=== PATIENT | male | born 1940 | race Caucasian/White ===

== ENCOUNTER 2021-09-30 18:45 | Inpatient (IN) | payer MEDICARE ==
[~2021-09-30] VITALS: Ht 182.9 cm; Wt 124.2 kg
--- NOTE | 2021-09-30 19:28 | PHYS DOC ---
Past Medical History Past Surgical History: Other General Adult EDM: Chief Complaint: ABDOMINAL PAIN HPI: HPI: Patient is a 81 year old male who presents with here by EMS from [facility] with mid sternal pain that goes down into his umbilical area that he feels like it is a squeezing type pain. States been going on since this afternoon. Also the patient does not usually wear oxygen but upon EMS arrival he was only 85 to 87% on room air. States he was just treated for a urinary infection and is done with the antibiotic. He denies nausea, vomiting, chest pain, diarrhea, blood in his stool, urinary symptoms, dizziness, headache, focal weakness, numbness or tingling, vision change, fever, chills, body aches. Rates his pain a 7 out of 10. History of high blood pressure diabetes, GERD, high cholesterol, large prostate, seizure, left below the knee amputation. Review of Systems: Review of Systems: Constitutional: Denies fever or chills. [] Eyes: Denies change in visual acuity. [] HENT: Denies nasal congestion or sore throat. [] Respiratory: Denies cough or +shortness of breath. [] Cardiovascular: Denies chest pain or edema. [] GI: +abdominal pain, denies nausea, vomiting, bloody stools or diarrhea. [] : Denies dysuria. [] Musculoskeletal: Denies back pain or joint pain. [] Integument: Denies rash. [] Neurologic: Denies headache, focal weakness or sensory changes. [] Endocrine: Denies polyuria or polydipsia. [] Lymphatic: Denies swollen glands. [] Psychiatric: Denies depression or anxiety. [] Heart Score: C/O Chest Pain: No HEART Score for Chest Pain: HEART Score for Chest Pain Response (Comments) Value History Slighlty/Non-Suspicious 0 ECG Normal 0 Age > 65 2 Risk Factors >3 Risk Factors or Hx CAD 2 Troponin < Normal Limit 0 Total 4 Risk Factors: Risk Factors: DM, Current or recent (<one month) smoker, HTN, HLP, family history of CAD, obesity. Risk Scores: Score 0 - 3: 2.5% MACE over next 6 weeks - Discharge Home Score 4 - 6: 20.3% MACE over next 6 weeks - Admit for Clinical Observation Score 7 - 10: 72.7% MACE over next 6 weeks - Early Invasive Strategies Physical Exam: PE: Constitutional: Well developed, well nourished, no acute distress, non-toxic appearance. [] HENT: Normocephalic, atraumatic, bilateral external ears normal, oropharynx moist, no oral exudates, nose normal. [] Eyes: PERRLA, EOMI, conjunctiva normal, no discharge. [] Neck: Normal range of motion, no tenderness, supple, no stridor. [] Cardiovascular:Heart rate regular rhythm, no murmur [] Lungs & Thorax: Bilateral breath sounds clear to auscultation [] Abdomen: Bowel sounds normal, soft, no tenderness, no masses, no pulsatile masses. [] Skin: Warm, dry, no erythema, no rash. [] Back: No tenderness, no CVA tenderness. [] Extremities: No tenderness, no cyanosis, no clubbing, ROM intact, no edema. [] Neurologic: Alert and oriented X 3, normal motor function, normal sensory function, no focal deficits noted. [] Psychologic: Affect normal, judgement normal, mood normal. [] Current Patient Data: Vital Signs: Vital Signs Date Time Temp Pulse Resp B/P (MAP) Pulse Ox O2 Delivery O2 Flow Rate FiO2 09/30/21 19:12 97.7 94 22 189/89 (122) 94 Nasal Cannula 2.0 97.7 EKG: EK and read by Dr. Tee as a sinus rhythm with no STEMI. Radiology/Procedures: Radiology/Procedures: [] Impression: [facility] [address] [place], [place] [id number] IMAGING REPORT Signed PATIENT: HATTIE ESPINOZA ACCOUNT: [id number] : 1940 LOCATION: ER AGE: 81 SEX: M EXAM STATUS: PRE ER ORD. PHYSICIAN: BONIFACIO MCKENZIE APRN REASON: hypoxia PROCEDURE: PORTABLE CHEST 1V Single view chest dated 09/30/2021 7:47 PM: COMPARISON: None Clinical Indication: Hypoxia. Findings: Single upright portable exam of the chest was performed. Heart and mediastinal contours within normal limits. Lungs are somewhat hyperinflated but otherwise clear. No consolidation or pleural effusion. No pneumothorax. There are a few prominent linear markings at both lung bases, likely scar or atelectasis. IMPRESSION: No acute radiographic abnormality. Electronically signed by: Sin Almonte MD (09/30/2021 7:48 PM) [facility] [place] and SIGNED BY: SIN ALMONTE MD DATE: 09/30/21 [id number] [facility] [address] [place] [address] IMAGING REPORT Signed PATIENT: HATTIE ESPINOZA ACCOUNT: [id number] : 1940 LOCATION: ER AGE: 81 SEX: M EXAM STATUS: REG ER ORD. PHYSICIAN: BONIFACIO MCKENZIE APRN REASON: HYPOXIA, SOA, ABDOMINAL PAIN, C=2.0, GFR 32.4 DO BONIFACIO SAID DO WITHOUT PROCEDURE: CT CHEST ABDOMEN PELVIS WO Exam: CT of chest, abdomen and pelvis without contrast INDICATION: Hypoxia, short of air, abdominal pain TECHNIQUE: Sequential axial images through the chest, abdomen and pelvis obtained without IV contrast. Sagittal and coronal reformatted images were reconstructed from the axial data and reviewed. Exposure: One or more of the following in the visualized dose reduction techniques were utilized for this examination: 1. Automated exposure control 2. Adjustment of the MA and/or KV according to patient size 3. Use of iterative of reconstructive technique Comparisons: Chest x-ray same day FINDINGS: Visualized portions of the thyroid are unremarkable. No enlarged mediastinal lymph nodes are identified. Heart size is normal. No pericardial effusion. Moderate coronary artery calcifications. Thoracic aorta has normal course and caliber. Pulmonary artery is not enlarged. Airways are patent. Patchy groundglass opacity noted lungs bilaterally. No pneumothorax. No suspicious lung nodules. No pleural effusion or thickening. Evaluation of solid organs limited secondary to noncontrast technique. Liver, spleen, pancreas and adrenals are unremarkable. Gallbladder is unremarkable. No perinephric inflammation or hydronephrosis. No renal or ureteral calculi are identified. Bladder is decompressed not well evaluated. Prostate is not enlarged. Moderate amount stool noted in colon. Appendix is nonidentified. No free intra- abdominal air or fluid. No obstruction. Abdominal aorta has normal course and caliber. No enlarged intra-abdominal lymph nodes are identified. No suspicious osseous lesions or acute fractures. IMPRESSION: 1. Patchy groundglass opacity in lungs bilaterally favored to be infectious or inflammatory in etiology. 2. No acute process identified within the abdomen or pelvis. Electronically signed by: Ruslan Goldberg MD (09/30/2021 9:55 PM) [facility] DICTATED and SIGNED BY: RUSLAN GOLDBERG MD DATE: 09/30/21 [id number] Course & Med Decision Making: Course & Med Decision Making Pertinent Labs and Imaging studies reviewed. (See chart for details) COVID-19 CRITERIA: The patient was evaluated during the global COVID-19 pandemic, and that diagnosis was suspected/considered upon their initial presentation. Their evaluation, treatment and testing was consistent with current guidelines for patients who present with complaints or symptoms that may be related to COVID-19. See HPI. Alert and oriented x4. Patient is noticeably short of breath. Speaks in short sentences. Abdomen is soft and nontender. No pain elicited over chest with palpation. Lungs are clear in upper lobes and diminished in lower lobes. Skin pink warm and dry. EKG is a sinus rhythm no STEMI. He is afebrile. Patient is 94% on 2 L of oxygen. Patient is complaining that his blood glucose is low. We took our own fingerstick and it was 72. However patient has not had a CT abdomen pelvis I do not want to feed him or give him anything to drink. Patient got 250 mL of D5 which pharmacy states is the same as half amp of D50. We are currently out of D50 in the hospital. Patient has a white blood cell count of 18. He is requiring oxygen. I want to CT scan his chest but due to his kidney function I am unable to use IV contrast. Have ordered azithromycin in Rocephin. Have ordered fluid. I will order a VQ scan for in the morning. Chest x-ray showed no acute findings but with a CT chest, abdomen and pelvis without contrast showed some groundglass opacities. Patient has never been to this facility so I cannot look back to see his past lab results. I am unaware of any kind of acute renal failure. [] [place] Disclaimer: Fanny Disclaimer: This electronic medical record was generated, in whole or in part, using a voice recognition dictation system. COVID-19 Patient Risks: Age 65 or older: Yes Sign of co-morbidity: Yes Exp to person + for COVID: No Exp to PUI: No Travel from affected area: No Lower respiratory symptoms: Yes Fever: No Other: Yes (abd pain) PPE Use: Full PPE with N95 mask or PAPR: Yes Date and Time of Reassessment Date: Sep 30, 2021 Time: 22:12 Fluid Challenge Is the fluid challenge complet: No IBW Target Volume Used: Yes BMI > 30: Yes Vital Signs Vital Signs: Vital Signs Date Time Temp Pulse Resp B/P (MAP) Pulse Ox O2 Delivery O2 Flow Rate FiO2 09/30/21 20:32 15 93 Nasal Cannula 2.0 09/30/21 20:02 97 214/86 09/30/21 19:12 97.7 97.7 Temperature Source: Oral Respirations Respiratory Effort: Normal, Shortness of breath Respiratory Pattern: Normal Cardiovascular Pulse Rhythm: Regular Heart: Nml S1, S2, no murmurs Lung Sounds Breath Sounds: Diminished Capillary Refil Capillary Refill: Rt Hand < 3 seconds Peripheral Pulse Pulse Location: Radial Pulse Strength: Normal (2+) Pulse Assessment Method: Monitor Integumentary Skin: Warm Skin Moisture: Dry Skin Turgor: Normal Skin Color: warm Fingernail Color: WNL Departure Departure Impression: Primary Impression: Pneumonia Qualified Codes: J18.9 - Pneumonia, unspecified organism Additional Impressions: Hypoxia Person under investigation for COVID-19 SIRS (systemic inflammatory response syndrome) Acute kidney failure Qualified Codes: N17.9 - Acute kidney failure, unspecified Disposition: 09 ADMITTED INPATIENT Admitting Physician: BONNIE Condition: STABLE BONIFACIO MCKENZIE APRN Sep 30, 2021 19:28
[2021-09-30] MEDS ORDERED: FAMOTIDINE 20 MG/2 ML VIAL IVP ONE (19:30)
--- NOTE | 2021-09-30 19:50 | RAD ---
Single view chest dated 09/30/2021 7:47 PM: COMPARISON: None Clinical Indication: Hypoxia. Findings: Single upright portable exam of the chest was performed. Heart and mediastinal contours within normal limits. Lungs are somewhat hyperinflated but otherwise clear. No consolidation or pleural effusion. No pneumothorax. There are a few prominent linear markings at both lung bases, likely scar or atelect asis. IMPRESSION: No acute radiographic abnormality. Electronically signed by: Sin Almonte MD (09/30/2021 7:48 PM) [facility]
[2021-09-30] MEDS ORDERED: fentaNYL PF VIAL 100 MCG/2 ML VIAL IVP ONE (20:00)
[2021-09-30] MEDS ORDERED: CARVEDILOL 12.5 MG TABLET. PO ONE (20:00)
[2021-09-30 20:15] LABS: BILIRUBIN,URINE NEGATIVE (NEG); CLARITY,URINE CLEAR; COLOR,URINE YELLOW; NITRITE,URINE NEGATIVE (NEG); PROTEIN,URINE 100 mg/dL (NEG-TRACE); UROBILINOGEN,URINE 0.2 mg/dL (0.2 mg/dL)
[2021-09-30 20:16] LABS: BARBITURATES NEG (NEG); BENZODIAZEPINES NEG (NEG); CANNABINOIDS NEG (NEG); COCAINE NEG (NEG); GRANULAR CASTS,URINE OCCASIONAL /HPF; HYALINE CASTS, URINE FEW /HPF; METHADONE NEG (NEG); OPIATES NEG (NEG); PHENCYCLIDINE NEG (NEG)
[2021-09-30 20:17] LABS: AMPHETAMINE/METHAMPHETAMINE NEG (NEG)
[2021-09-30 20:18] LABS: BACTERIA,URINE 0 /HPF (0-FEW); WBC,URINE 20-40 /HPF (0-4)
[2021-09-30 20:20] LABS: INFLUENZA A PATIENT NEGATIVE (NEGATIVE); INFLUENZA B PATIENT NEGATIVE (NEGATIVE)
[2021-09-30 20:24] LABS: BASO # 0.1 x10^3/uL (0.0-0.2); BASO % 0 % (0-3); EOS # 0.1 x10^3/uL (0.0-0.7); EOS % 1 % (0-3); HEMATOCRIT 31.6 % (39.0-53.0); HEMOGLOBIN 10.5 g/dL (13.0-17.5); LYMPH % 6 % (24-48); MEAN CORPUSCULAR HEMOGLOBIN 35 pg (25-35); MEAN CORPUSCULAR HGB CONC 33 g/dL (31-37); MEAN CORPUSCULAR VOLUME 105 fL (79-100); MONO # 1.5 x10^3/uL (0.0-1.1); MONO % 8 % (0-9); NEUT # 15.3 x10^3/uL (1.8-7.7); NEUT % 85 % (31-73); PLATELET COUNT 415 x10^3/uL (140-400); RED BLOOD COUNT 3.01 x10^6/uL (4.30-5.70); RED CELL DISTRIBUTION WIDTH 14.3 % (11.5-14.5)
[2021-09-30 20:49] LABS: CALCIUM 8.4 mg/dL (8.5-10.1); GFR 32.4; POTASSIUM 4.5 mmol/L (3.5-5.1)
[2021-09-30 20:53] LABS: ALBUMIN 2.1 g/dL (3.4-5.0); ALBUMIN/GLOBULIN RATIO 0.3 (1.0-1.7); TOTAL BILIRUBIN 0.2 mg/dL (0.2-1.0); TOTAL PROTEIN 8.9 g/dL (6.4-8.2)
[2021-09-30] MEDS ORDERED: IV DEXTROSE 5% 250 ML IV ONE ×2 (20:55→21:30)
[2021-09-30] MEDS: IV DEXTROSE 5% 500 ML IV ONE ×2 (21:00→21:01)
[2021-09-30 21:11] LABS: % BANDS 2 % (0-9); % EOS 1 % (0-5); % LYMPHS 7 % (24-48); % MONOS 8 % (0-10); % SEGS 82 % (35-66)
[2021-09-30 21:12] LABS: PLT ESTIMATE INCREASED (ADEQUATE); POLYCHROMASIA SLIGHT
--- NOTE | 2021-09-30 21:57 | RAD ---
Exam: CT of chest, abdomen and pelvis without contrast INDICATION: Hypoxia, short of air, abdominal pain TECHNIQUE: Sequential axial images through the chest, abdomen and pelvis obtained without IV contrast . Sagittal and coronal reformatted images were reconstructed from the axial data and reviewed. Exposure: One or more of the following in the visualized dose reduction techniques were utilized for this examination: 1. Automated exposure control 2. Adjustment of the MA and/or KV according to patient size 3. Use of iterative of reconstructive technique Comparisons: Chest x-ray same day FINDINGS: Visualized portions of the thyroid are unremarkable. No enlarged mediastinal lymph nodes are identifi ed. Heart size is normal. No pericardial effusion. Moderate coronary artery calcifications. Thoracic aort a has normal course and caliber. Pulmonary artery is not enlarged. Airways are patent. Patchy groundglass opacity noted lungs bilaterally. No pneumothorax. No suspiciou s lung nodules. No pleural effusion or thickening. Evaluation of solid organs limited secondary to noncontrast technique. Liver, spleen, pancreas and adrenals are unremarkable. Gallbladder is unremarkable. No perinephric inflammation or hydronephrosis. No renal or ureteral calculi are identified. Bladder is decompressed not well evaluated. Prostate is not enlarged. Moderate amount stool noted in colon. Appendix is nonidentified. No free intra-abdominal air or fluid . No obstruction. Abdominal aorta has normal course and caliber. No enlarged intra-abdominal lymph nodes are identified. No suspicious osseous lesions or acute fractures. IMPRESSION: 1. Patchy groundglass opacity in lungs bilaterally favored to be infectious or inflammatory in etiol ogy. 2. No acute process identified within the abdomen or pelvis. Electronically signed by: Ruslan Quezada MD (09/30/2021 9:55 PM) [facility]
[2021-09-30] MEDS ORDERED: PIPERACILLIN/TAZOBACTAM 3.375 GM in IV NORMAL SALINE 50ML 50 ML IV ONE (22:00)
[2021-09-30] MEDS ORDERED: cefTRIAXone IV Push 1 GM VIAL. IVP ONE (22:30)
[2021-09-30] MEDS ORDERED: IV NORMAL SALINE 1000ML BAG 1,000 ML IV ONE (22:30)
[2021-09-30] MEDS ORDERED: IV NORMAL SALINE 500ML BAG 500 ML IV ONE (22:30)
[2021-09-30] MEDS ORDERED: AZITHROMYCIN 500 MG in IV NORMAL SALINE 250ML 250 ML IV ONE (22:30)
[2021-09-30 22:44] LABS: BASE EXCESS COOX -1 mmol/L (-3-3); HCO3 COOX 25 mmol/L (21-28); METHEMOGLOBIN 0.4 % (0.0-1.9); OXYHEMOGLOBIN 93.3 %; PCO2 COOX 43 mmHg (35-46); PO2 COOX 76 mmHg (65-108); SAT O2 COOX 94 % (92-99)
[2021-09-30 23:50] VITALS: BP 198/82
[2021-10-01] VITALS (8 sets, daily range): BP systolic 154–216; BP diastolic 62–87
[2021-10-01] MEDS ORDERED: ASPI-630 PO (00:53)
[2021-10-01] MEDS ORDERED: INSU100V6 SQ (01:04)
[2021-10-01] MEDS ORDERED: CHLO25TA10 PO (01:04)
[2021-10-01] MEDS ORDERED: TAMS0.4C97 PO (01:04)
[2021-10-01] MEDS ORDERED: CARV25TA2 PO (01:04)
[2021-10-01] MEDS ORDERED: PRAV80TA2 PO (01:04)
[2021-10-01] MEDS ORDERED: CINN500C2 PO (01:04)
[2021-10-01] MEDS ORDERED: OMEP20CA16 PO (01:04)
[2021-10-01] MEDS ORDERED: PHEN300C4 PO (01:04)
[2021-10-01] MEDS ORDERED: TELM80TA PO (01:07)
[2021-10-01] MEDS ORDERED: INSU100V37 SQ (01:07)
[2021-10-01] MEDS ORDERED: ACET500T68 PO (01:15)
[2021-10-01] MEDS ORDERED: ICOS1CAP PO (01:15)
[2021-10-01] MEDS ORDERED: CETI10TA16 PO (01:15)
[2021-10-01] MEDS ORDERED: SILD20TA4 PO (01:15)
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
[2021-10-01 08:50] LABS: BASO % 0 % (0-3); EOS # 0.1 x10^3/uL (0.0-0.7); EOS % 1 % (0-3); HEMATOCRIT 28.5 % (39.0-53.0); HEMOGLOBIN 9.2 g/dL (13.0-17.5); LYMPH # 1.2 x10^3/uL (1.0-4.8); LYMPH % 11 % (24-48); MEAN CORPUSCULAR HEMOGLOBIN 34 pg (25-35); MEAN CORPUSCULAR HGB CONC 32 g/dL (31-37); MEAN CORPUSCULAR VOLUME 105 fL (79-100); MONO # 1.3 x10^3/uL (0.0-1.1); MONO % 12 % (0-9); NEUT # 8.6 x10^3/uL (1.8-7.7); NEUT % 76 % (31-73); PLATELET COUNT 367 x10^3/uL (140-400); RED BLOOD COUNT 2.72 x10^6/uL (4.30-5.70); RED CELL DISTRIBUTION WIDTH 14.3 % (11.5-14.5); WHITE BLOOD COUNT 11.4 x10^3/uL (4.0-11.0)
--- NOTE | 2021-10-01 08:51 | PDOC1 ---
History and Physical Date of Admission Date of Admission DATE: 10/01/21 TIME: 08:51 History of Present Illness History of Present Illness MR. Calle is a 81 year old male admit with new cough and dyspnea. Pain in chest when coughing, no current pain and he reports feelign much imrpovd this AM than last night. He has lived at [facility] for the past few months. His chest pain was a sensation of tightness last night,but no pain this AM. noted hypoxic in [facility] ER, better today, on 2 liters Past Medical History Past Medical History Cardiovascular: HTN, Hyperlipidemia CENTRAL NERVOUS SYSTEM: Seizure GI: No pertinent hx Heme/Onc: No pertinent hx Musculoskeletal: Other (prior BKA surgery) Family History Family History: No Significant Social History Smoke: No ALCOHOL: none Drugs: None Current Problem List Problem List Problems Medical Problems: (1) Acute kidney failure Status: Acute (2) Hypoxia Status: Acute (3) Person under investigation for COVID-19 Status: Acute (4) Pneumonia Status: Acute (5) SIRS (systemic inflammatory response syndrome) Status: Acute Current Medications Current Medications Current Medications Famotidine (Pepcid Vial) 20 mg 1X ONCE IVP Last administered on 09/30/21at 19:51; Start 09/30/21 at 19:30; Stop 09/30/21 at 19:39; Status DC Fentanyl Citrate (Fentanyl 2ml Vial) 50 mcg 1X ONCE IVP Last administered on 09/30/21at 20:02; Start 09/30/21 at 20:00; Stop 09/30/21 at 20:01; Status DC Carvedilol (Coreg) 25 mg 1X ONCE PO Last administered on 09/30/21at 20:02; Start 09/30/21 at 20:00; Stop 09/30/21 at 20:01; Status DC Dextrose 500 ml @ 250 mls/hr 1X ONCE IV ; Start 09/30/21 at 20:45; Stop 09/30/21 at 22:44; Status DC Dextrose 250 ml @ 500 mls/hr 1X ONCE IV Last administered on 09/30/21at 21:00; Start 09/30/21 at 21:30; Stop 09/30/21 at 21:59; Status DC Dextrose 250 ml @ As Directed STK-MED ONCE IV ; Start 09/30/21 at 20:55; Stop 09/30/21 at 20:55; Status DC Piperacillin Sod/ Tazobactam Sod 3.375 gm/Sodium Chloride 50 ml @ 100 mls/hr 1X ONCE IV ; Start 09/30/21 at 22:00; Stop 09/30/21 at 22:29; Status Cancel Sodium Chloride 1,000 ml @ 1,000 mls/hr 1X ONCE IV Last administered on 09/30/21at 22:07; Start 09/30/21 at 22:30; Stop 09/30/21 at 23:29; Status DC Azithromycin 500 mg/Sodium Chloride 250 ml @ 250 mls/hr 1X ONCE IV Last administered on 09/30/21at 22:18; Start 09/30/21 at 22:30; Stop 09/30/21 at 23:29; Status DC Ceftriaxone Sodium (Rocephin) 1 gm 1X ONCE IVP Last administered on 09/30/21at 22:18; Start 09/30/21 at 22:30; Stop 09/30/21 at 22:31; Status DC Sodium Chloride 500 ml @ 500 mls/hr 1X ONCE IV Last administered on 09/30/21at 23:32; Start 09/30/21 at 22:30; Stop 09/30/21 at 23:29; Status DC Active Scripts Active Reported Sildenafil (Sildenafil Citrate) 20 Mg Tablet 20 Mg PO PRN 1X Cetirizine Hcl 10 Mg Tablet 1 Tab PO PRN DAILY PRN Acetaminophen 500 Mg Tablet 2 Tab PO PRN BID PRN 30 Days Vascepa (Icosapent Ethyl) 1 Gm Capsule 2 Cap PO BID AC 30 Days Tresiba (Insulin Degludec) 100 Unit/1 Ml Vial 40 Unit SQ DAILYWLUN Micardis (Telmisartan) 80 Mg Tablet 1 Tab PO DAILY Flomax (Tamsulosin Hcl) 0.4 Mg Cap.er.24h 1 Cap PO HS Pravastatin Sodium 80 Mg Tablet 1 Tab PO QHS Phenytoin Sodium Extended 300 Mg Capsule 1 Cap PO BIDWMEALS 30 Days Omeprazole 20 Mg Capsule.dr 1 Cap PO 0730 Humalog (Insulin Lispro) 100 Unit/1 Ml Vial 26 Unit SQ BID WMEALS Cinnamon (Cinnamon Bark) 500 Mg Capsule 1,000 Mg PO BID Chlorthalidone (Chlorthalidone) 25 Mg Tablet 25 Mg PO DAILY Carvedilol 25 Mg Tablet 25 Mg PO BIDWMEALS Aspirin 81 Mg Tab.chew 1 Tab PO DAILY Allergies Allergies: Coded Allergies: No Known Drug Allergies (Unverified , 09/30/21) ROS General: YES: Chills, Fatigue; No: Night Sweats, Malaise, Appetite, Other PSYCHOLOGICAL ROS: No: Anxiety, Behavioral Disorder, Concentration difficultie, Decreased libido, Depression, Disorientation, Hallucinations, Hostility, Irritablity, Memory difficulties, Mood Swings, Obsessive thoughts, Suicidal ideation, Other Eyes: No Blurry vision, No Decreased vision, No Double vision, No Dry eyes, No Excessive tearing, No Eye Pain, No Itchy Eyes, No Loss of vision, No Phot ophobia, No Scotomata, No Uses contacts, No Uses glasses, No Other HEENT: No: Heacaches, Visual Changes, Hearing change, Nasal congestion, Nasal discharge, Oral lesions, Sinus pain, Sore Throat, Epistaxis, Sneezing, Snoring, Tinnitus, Vertigo, Vocal changes, Other Respiratory: YES: Cough, Pleuritic Pain; No: Hemoptysis, Orthopnea, Shortness of breath, SOB with excertion, Sputum Changes, Stridor, Tachypnea, Wheezing, Other Cardiovascular: yes Chest Pain; No Palpitations, No Orthopnea, No Paroxysmal Noc. Dyspnea, No Edema, No Lt Headedness, No Other Genitourinary: No Dysuria, No Frequency, No Incontinence, No Hematuria, No Retention, No Discharge, No Urgency, No Pain, No Flank Pain, No Other, No , No , No , No , No , No , No Musculoskeletal: Yes Joint Stiffness; No Gait Disturbance, No Joint Pain, No Joint Swelling, No Muscle Pain, No Muscular Weakness, No Swelling In:, No Other Neurological: No Behavorial Changes, No Bowel/Bladder ControlChng, No Confusion, No Dizziness, No Gait Disturbance, No Headaches, No Impaired Coord/balance, No Memory Loss, No Numbness/Tingling, No Seizures, No Speech Problems, No Tremors, No Visual Changes, No Weakness, No Other Skin: No Dry Skin, No Eczema, No Hair Changes, No Lumps, No Mole Changes, No Mottling, No Nail Changes, No Pruritus, No Rash, No Skin Lesion Changes, No Other, No Acne Physical Exam General: Alert, Cooperative, mild distress HEENT: PERRLA, EOMI Lungs: Normal air movement, Other (rales, ) Heart: no murmurs Abdomen: Soft (obese, ) Rectal Exam: deferred Extremities: No edema Skin: No significant lesion Neuro: Normal speech, Normal tone, Sensation intact Psych/Mental Status: Mental status NL, Mood NL Vitals Vitals Vital Signs Date Time Temp Pulse Resp B/P (MAP) Pulse Ox O2 Delivery O2 Flow Rate FiO2 10/01/21 08:00 Nasal Cannula 2.0 10/01/21 06:40 98.1 77 20 191/72 (111) 96 98.1 Labs Labs Laboratory Tests Test 09/30/21 19:55 09/30/21 20:10 09/30/21 20:40 09/30/21 22:40 Urine Collection Type Unknown Urine Color Yellow Urine Clarity Clear Urine pH 6.0 (<5.0-8.0) Urine Specific Rupert 1.020 (1.000-1.030) Urine Protein 100 mg/dL (NEG-TRACE) Urine Glucose (UA) 100 mg/dL (NEG) Urine Ketones (Stick) Negative mg/dL (NEG) Urine Blood Small (NEG) Urine Nitrite Negative (NEG) Urine Bilirubin Negative (NEG) Urine Urobilinogen Dipstick 0.2 mg/dL (0.2 mg/dL) Urine Leukocyte Esterase Negative (NEG) Urine RBC 3-5 /HPF (0-2) Urine WBC 20-40 /HPF (0-4) Urine Squamous Epithelial Cells Few /LPF Urine Bacteria 0 /HPF (0-FEW) Urine Hyaline Casts Few /HPF Urine Granular Casts Occasional /HPF Urine Opiates Screen Neg (NEG) Urine Methadone Screen Neg (NEG) Urine Barbiturates Neg (NEG) Urine Phencyclidine Screen Neg (NEG) Urine Amphetamine/Methamphetamine Neg (NEG) Urine Benzodiazepines Screen Neg (NEG) Urine Cocaine Screen Neg (NEG) Urine Cannabinoids Screen Neg (NEG) Urine Ethyl Alcohol Neg (NEG) Influenza Type A Antigen Negative (NEGATIVE) Influenza Type B Antigen Negative (NEGATIVE) SARS-CoV-2 Antigen (Rapid) Negative (NEGATIVE) White Blood Count 18.0 x10^3/uL (4.0-11.0) Red Blood Count 3.01 x10^6/uL (4.30-5.70) Hemoglobin 10.5 g/dL (13.0-17.5) Hematocrit 31.6 % (39.0-53.0) Mean Corpuscular Volume 105 fL (79-100) Mean Corpuscular Hemoglobin 35 pg (25-35) Mean Corpuscular Hemoglobin Concent 33 g/dL (31-37) Red Cell Distribution Width 14.3 % (11.5-14.5) Platelet Count 415 x10^3/uL (140-400) Neutrophils (%) (Auto) 85 % (31-73) Lymphocytes (%) (Auto) 6 % (24-48) Monocytes (%) (Auto) 8 % (0-9) Eosinophils (%) (Auto) 1 % (0-3) Basophils (%) (Auto) 0 % (0-3) Neutrophils # (Auto) 15.3 x10^3/uL (1.8-7.7) Lymphocytes # (Auto) 1.0 x10^3/uL (1.0-4.8) Monocytes # (Auto) 1.5 x10^3/uL (0.0-1.1) Eosinophils # (Auto) 0.1 x10^3/uL (0.0-0.7) Basophils # (Auto) 0.1 x10^3/uL (0.0-0.2) Segmented Neutrophils % 82 % (35-66) Band Neutrophils % 2 % (0-9) Lymphocytes % 7 % (24-48) Monocytes % 8 % (0-10) Eosinophils % 1 % (0-5) Platelet Estimate Increased (ADEQUATE) Polychromasia Slight Macrocytosis Slight Sodium Level 137 mmol/L (136-145) Potassium Level 4.5 mmol/L (3.5-5.1) Chloride Level 101 mmol/L (98-107) Carbon Dioxide Level 24 mmol/L (21-32) Anion Gap 12 (6-14) Blood Urea Nitrogen 44 mg/dL (8-26) Creatinine 2.0 mg/dL (0.7-1.3) Estimated GFR (Cockcroft-Gault) 32.4 BUN/Creatinine Ratio 22 (6-20) Glucose Level 93 mg/dL (70-99) Calcium Level 8.4 mg/dL (8.5-10.1) Total Bilirubin 0.2 mg/dL (0.2-1.0) Aspartate Amino Transf (AST/SGOT) 36 U/L (15-37) Alanine Aminotransferase (ALT/SGPT) 46 U/L (16-63) Alkaline Phosphatase 157 U/L (46-116) Troponin I High Sensitivity 16 ng/L (4-75) Total Protein 8.9 g/dL (6.4-8.2) Albumin 2.1 g/dL (3.4-5.0) Albumin/Globulin Ratio 0.3 (1.0-1.7) Lipase 110 U/L (73-393) Glucose (Fingerstick) 72 mg/dL (70-99) O2 Saturation 94 % (92-99) Arterial Blood pH 7.38 (7.35-7.45) Arterial Blood pCO2 at Patient Temp 43 mmHg (35-46) Arterial Blood pO2 at Patient Temp 76 mmHg (65-108) Arterial Blood HCO3 25 mmol/L (21-28) Arterial Blood Base Excess -1 mmol/L (-3-3) Oxyhemoglobin 93.3 % Methemoglobin 0.4 % (0.0-1.9) Carbon Monoxide, Quantitative 0.3 % (0.0-1.9) FiO2 28 (2l nc) Test 09/30/21 22:55 Lactic Acid Level 1.6 mmol/L (0.4-2.0) [id number]-Type Natriuretic Peptide 1301 pg/mL (0-449) Laboratory Tests Test 09/30/21 19:55 09/30/21 20:10 09/30/21 20:40 09/30/21 22:40 Urine Collection Type Unknown Urine Color Yellow Urine Clarity Clear Urine pH 6.0 (<5.0-8.0) Urine Specific Rupert 1.020 (1.000-1.030) Urine Protein 100 mg/dL (NEG-TRACE) Urine Glucose (UA) 100 mg/dL (NEG) Urine Ketones (Stick) Negative mg/dL (NEG) Urine Blood Small (NEG) Urine Nitrite Negative (NEG) Urine Bilirubin Negative (NEG) Urine Urobilinogen Dipstick 0.2 mg/dL (0.2 mg/dL) Urine Leukocyte Esterase Negative (NEG) Urine RBC 3-5 /HPF (0-2) Urine WBC 20-40 /HPF (0-4) Urine Squamous Epithelial Cells Few /LPF Urine Bacteria 0 /HPF (0-FEW) Urine Hyaline Casts Few /HPF Urine Granular Casts Occasional /HPF Urine Opiates Screen Neg (NEG) Urine Methadone Screen Neg (NEG) Urine Barbiturates Neg (NEG) Urine Phencyclidine Screen Neg (NEG) Urine Amphetamine/Methamphetamine Neg (NEG) Urine Benzodiazepines Screen Neg (NEG) Urine Cocaine Screen Neg (NEG) Urine Cannabinoids Screen Neg (NEG) Urine Ethyl Alcohol Neg (NEG) Influenza Type A Antigen Negative (NEGATIVE) Influenza Type B Antigen Negative (NEGATIVE) SARS-CoV-2 Antigen (Rapid) Negative (NEGATIVE) White Blood Count 18.0 x10^3/uL (4.0-11.0) Red Blood Count 3.01 x10^6/uL (4.30-5.70) Hemoglobin 10.5 g/dL (13.0-17.5) Hematocrit 31.6 % (39.0-53.0) Mean Corpuscular Volume 105 fL (79-100) Mean Corpuscular Hemoglobin 35 pg (25-35) Mean Corpuscular Hemoglobin Concent 33 g/dL (31-37) Red Cell Distribution Width 14.3 % (11.5-14.5) Platelet Count 415 x10^3/uL (140-400) Neutrophils (%) (Auto) 85 % (31-73) Lymphocytes (%) (Auto) 6 % (24-48) Monocytes (%) (Auto) 8 % (0-9) Eosinophils (%) (Auto) 1 % (0-3) Basophils (%) (Auto) 0 % (0-3) Neutrophils # (Auto) 15.3 x10^3/uL (1.8-7.7) Lymphocytes # (Auto) 1.0 x10^3/uL (1.0-4.8) Monocytes # (Auto) 1.5 x10^3/uL (0.0-1.1) Eosinophils # (Auto) 0.1 x10^3/uL (0.0-0.7) Basophils # (Auto) 0.1 x10^3/uL (0.0-0.2) Segmented Neutrophils % 82 % (35-66) Band Neutrophils % 2 % (0-9) Lymphocytes % 7 % (24-48) Monocytes % 8 % (0-10) Eosinophils % 1 % (0-5) Platelet Estimate Increased (ADEQUATE) Polychromasia Slight Macrocytosis Slight Sodium Level 137 mmol/L (136-145) Potassium Level 4.5 mmol/L (3.5-5.1) Chloride Level 101 mmol/L (98-107) Carbon Dioxide Level 24 mmol/L (21-32) Anion Gap 12 (6-14) Blood Urea Nitrogen 44 mg/dL (8-26) Creatinine 2.0 mg/dL (0.7-1.3) Estimated GFR (Cockcroft-Gault) 32.4 BUN/Creatinine Ratio 22 (6-20) Glucose Level 93 mg/dL (70-99) Calcium Level 8.4 mg/dL (8.5-10.1) Total Bilirubin 0.2 mg/dL (0.2-1.0) Aspartate Amino Transf (AST/SGOT) 36 U/L (15-37) Alanine Aminotransferase (ALT/SGPT) 46 U/L (16-63) Alkaline Phosphatase 157 U/L (46-116) Troponin I High Sensitivity 16 ng/L (4-75) Total Protein 8.9 g/dL (6.4-8.2) Albumin 2.1 g/dL (3.4-5.0) Albumin/Globulin Ratio 0.3 (1.0-1.7) Lipase 110 U/L (73-393) Glucose (Fingerstick) 72 mg/dL (70-99) O2 Saturation 94 % (92-99) Arterial Blood pH 7.38 (7.35-7.45) Arterial Blood pCO2 at Patient Temp 43 mmHg (35-46) Arterial Blood pO2 at Patient Temp 76 mmHg (65-108) Arterial Blood HCO3 25 mmol/L (21-28) Arterial Blood Base Excess -1 mmol/L (-3-3) Oxyhemoglobin 93.3 % Methemoglobin 0.4 % (0.0-1.9) Carbon Monoxide, Quantitative 0.3 % (0.0-1.9) FiO2 28 (2l nc) Test 09/30/21 22:55 Lactic Acid Level 1.6 mmol/L (0.4-2.0) [id number]-Type Natriuretic Peptide 1301 pg/mL (0-449) VTE Prophylaxis Ordered VTE Prophylaxis Devices: No VTE Pharmacological Prophylaxi: Yes Assessment/Plan Assessment/Plan acute hypoxia pneumonia with pleuritic pain, dementia weakness and debility obese, BMI 38 CKD 3 abx, pulm consult cont current Justifications for Admission Other Justification CRISS HARRINGTON MD Oct 01, 2021 08:51
--- NOTE | 2021-10-01 09:00 | CONS ---
DATE OF CONSULTATION: 10/01/2021 REASON FOR CONSULTATION: I was asked to see this 81-year-old gentleman for pneumonia. HISTORY OF PRESENT ILLNESS: He is a alf resident. He does not smoke. He was brought to the Emergency Room via EMS from [facility] with midsternal pain and abdominal pain. He denies shortness of breath. He is on oxygen 2 liters. Currently, his room air O2 saturation was 85-87%. He does have cough. His COVID rapid testing is negative. His PCR is pending. PAST MEDICAL HISTORY: Hypertension, gastroesophageal reflux disease, hyperlipidemia, BPH, seizure, left below-knee amputation. ALLERGIES: No known drug allergies. MEDICATIONS: Rocephin, azithromycin, Coreg. SOCIAL HISTORY: He does not smoke. FAMILY HISTORY: Hypertension. REVIEW OF SYSTEMS: He has not had a sleep study. Other systems otherwise negative. PHYSICAL EXAMINATION: GENERAL: This is an overweight gentleman. His BMI is 37.8. VITAL SIGNS: His O2 saturation on 2 liters of oxygen is 96%, respiratory rate 20, heart rate 77, blood pressure 182/68, temperature 98.1. HEENT: Normocephalic, atraumatic. Pupils equal, round, reactive to light. There is shallow oropharynx. NECK: Short. There is no lymphadenopathy or thyromegaly. CARDIOVASCULAR: Regular rate and rhythm. CHEST: Inspection is normal. LUNGS: There are bibasilar crackles, dullness at the bases. ABDOMEN: Soft and obese. Bowel sounds are good. EXTREMITIES: There is a left below-knee amputation. NEUROLOGIC: Alert. LYMPHATICS: There is no lymphadenopathy. LABORATORY DATA: I reviewed the following lab data: CT of chest showed patchy ground glass opacities. No acute process in the abdomen or pelvis. WBC 18, hemoglobin 10.5, platelets 415. Influenza A and B negative. COVID rapid negative. Sodium 137, potassium 4.5, chloride 101, CO2 of 24, BUN 44, creatinine 2, BNP 13.01. Troponin 16. ABG: pH 7.38, pCO2 of 43, pO2 of 76. IMPRESSION: 1. Acute respiratory failure secondary to pneumonia, rule out congestive heart failure. 2. Abnormal CT of the chest. 3. Obesity, suspect obstructive sleep apnea-hypopnea syndrome. 4. Hypertension. 5. Gastroesophageal reflux disease. 6. Status post left below-knee amputation. 7. Leukocytosis. 8. Acute kidney injury. PLAN AND RECOMMENDATIONS: 1. Titrate FiO2 to keep O2 saturation 90%. 2. Continue Rocephin and azithromycin. 3. Lovenox for DVT prophylaxis. 4. Pepcid for stress ulcer prophylaxis. 5. I do recommend echocardiogram. 6. Follow up COVID PCR testing. 7. If his COVID PCR testing negative, start bronchodilator. 8. I do recommend a sleep study as an outpatient. 9. He would require better blood pressure control. 10. The findings and recommendations were discussed with RN. Thank you very much for allowing me to participate in care of this very nice gentleman. YANIV DR: Juve TID: [id number]
[2021-10-01 09:34] LABS: ALBUMIN/GLOBULIN RATIO 0.3 (1.0-1.7); CALCIUM 8.1 mg/dL (8.5-10.1); CREATININE 1.8 mg/dL (0.7-1.3); GFR 36.6; POTASSIUM 4.4 mmol/L (3.5-5.1); TOTAL BILIRUBIN 0.2 mg/dL (0.2-1.0); TOTAL PROTEIN 8.1 g/dL (6.4-8.2)
[2021-10-01] MEDS ORDERED: ACETAMINOPHEN 500 MG TABLET PO PRN (10:00)
[2021-10-01] MEDS ORDERED: CETIRIZINE HCL 10 MG TABLET. PO PRN (10:00)
[2021-10-01] MEDS: CHLORTHALIDONE 25 MG TABLET. PO SCH (11:26)
[2021-10-01] MEDS: ASPIRIN CHEWABLE 81 MG TABLET. PO SCH (11:26)
[2021-10-01] MEDS: LOSARTAN POTASSIUM 50 MG TABLET. PO SCH (11:26)
[2021-10-01] MEDS: PANTOPRAZOLE 40 MG TABLET.DR. PO SCH (11:27)
[2021-10-01] MEDS: CARVEDILOL 12.5 MG TABLET. PO SCH ×2 (11:27→17:52)
[2021-10-01] MEDS: PHENYTOIN SODIUM EXTENDED 100 MG CAPSULE PO SCH ×2 (11:27→17:52)
[2021-10-01] MEDS: INSULIN GLARGINE SYRINGE. SQ SCH (11:28)
[2021-10-01] MEDS: ENOXAPARIN 40 MG/0.4 ML SYRINGE. SQ SCH (13:38)
--- NOTE | 2021-10-01 13:39 | PDOC2 ---
CONSULT Date of Consult Date of Consult DATE: 10/01/21 TIME: 13:29 Reason for Consult Reason for Consult: Renal failure Source Source: Chart review, Patient History of Present Illness Reason for Visit: Patients is a 81 year old male admit with new cough and dyspnea. Pain in chest when coughing, no current pain and he reports feeling much imrpoved now . His chest pain was a sensation of tightness last night,but no pain this AM. Denies N/V/D. No abdominal pain. No F/C. Denies any urinary complaints. He has lived at [facility] for the past few months. He was noted to be hypoxic in the ER, better today, on 2 liters Past Medical History Cardiovascular: HTN, Hyperlipidemia CENTRAL NERVOUS SYSTEM: Seizure GI: No pertinent hx Heme/Onc: No pertinent hx Musculoskeletal: Other (prior BKA surgery) Family History Family History: No Significant Social History No ALCOHOL: none Drugs: None Current Problem List Problem List Problems Medical Problems: (1) Acute kidney failure Status: Acute (2) Hypoxia Status: Acute (3) Person under investigation for COVID-19 Status: Acute (4) Pneumonia Status: Acute (5) SIRS (systemic inflammatory response syndrome) Status: Acute Current Medications Current Medications Current Medications Famotidine (Pepcid Vial) 20 mg 1X ONCE IVP Last administered on 09/30/21at 19:51; Start 09/30/21 at 19:30; Stop 09/30/21 at 19:39; Status DC Fentanyl Citrate (Fentanyl 2ml Vial) 50 mcg 1X ONCE IVP Last administered on 09/30/21at 20:02; Start 09/30/21 at 20:00; Stop 09/30/21 at 20:01; Status DC Carvedilol (Coreg) 25 mg 1X ONCE PO Last administered on 09/30/21at 20:02; Start 09/30/21 at 20:00; Stop 09/30/21 at 20:01; Status DC Dextrose 500 ml @ 250 mls/hr 1X ONCE IV ; Start 09/30/21 at 20:45; Stop 09/30/21 at 22:44; Status DC Dextrose 250 ml @ 500 mls/hr 1X ONCE IV Last administered on 09/30/21at 21:00; Start 09/30/21 at 21:30; Stop 09/30/21 at 21:59; Status DC Dextrose 250 ml @ As Directed STK-MED ONCE IV ; Start 09/30/21 at 20:55; Stop 09/30/21 at 20:55; Status DC Piperacillin Sod/ Tazobactam Sod 3.375 gm/Sodium Chloride 50 ml @ 100 mls/hr 1X ONCE IV ; Start 09/30/21 at 22:00; Stop 09/30/21 at 22:29; Status Cancel Sodium Chloride 1,000 ml @ 1,000 mls/hr 1X ONCE IV Last administered on 09/30/21at 22:07; Start 09/30/21 at 22:30; Stop 09/30/21 at 23:29; Status DC Azithromycin 500 mg/Sodium Chloride 250 ml @ 250 mls/hr 1X ONCE IV Last administered on 09/30/21at 22:18; Start 09/30/21 at 22:30; Stop 09/30/21 at 23:29; Status DC Ceftriaxone Sodium (Rocephin) 1 gm 1X ONCE IVP Last administered on 09/30/21at 22:18; Start 09/30/21 at 22:30; Stop 09/30/21 at 22:31; Status DC Sodium Chloride 500 ml @ 500 mls/hr 1X ONCE IV Last administered on 09/30/21at 23:32; Start 09/30/21 at 22:30; Stop 09/30/21 at 23:29; Status DC Acetaminophen (Tylenol) 1,000 mg PRN BID PRN PO pain or fever; Start 10/01/21 at 10:00 Aspirin (Aspirin Chewable) 81 mg DAILY PO Last administered on 10/01/21at 11:26; Start 10/01/21 at 11:00 Cetirizine HCl (ZyrTEC) 10 mg PRN DAILY PRN PO ALLERGIES; Start 10/01/21 at 10:00 Chlorthalidone (Thalitone) 25 mg DAILY PO Last administered on 10/01/21at 11:26; Start 10/01/21 at 11:00 Insulin Human Lispro (HumaLOG) 26 units BIDWMEALS SQ ; Start 10/01/21 at 17:00 Tamsulosin HCl (Flomax) 0.4 mg HS PO ; Start 10/01/21 at 21:00 Carvedilol (Coreg) 25 mg BIDWMEALS PO Last administered on 10/01/21at 11:27; Start 10/01/21 at 11:00 Non-Formulary Medication (Icosapent Ethyl (Vascepa)) 2 cap BID AC PO ; Start 10/01/21 at 17:30; Status UNV Insulin Glargine (Lantus Syringe) 40 unit DAILYWLUN SQ Last administered on 10/01/21at 11:28; Start 10/01/21 at 12:00 Pantoprazole Sodium (Protonix) 40 mg DAILYAC PO Last administered on 10/01/21at 11:27; Start 10/01/21 at 11:00 Phenytoin Sodium (Dilantin) 300 mg BIDWMEALS PO Last administered on 10/01/21at 11:27; Start 10/01/21 at 11:00 Atorvastatin Calcium (Lipitor) 20 mg QHS PO ; Start 10/01/21 at 21:00 Losartan Potassium (Cozaar) 50 mg DAILY PO Last administered on 10/01/21at 11:2 6; Start 10/01/21 at 11:00 Enoxaparin Sodium (Lovenox Per Pharmacy Prophylaxis Dosing) 1 each PRN DAILY PRN MC SEE COMMENTS; Start 10/01/21 at 12:15 Enoxaparin Sodium (Lovenox 40mg Syringe) 40 mg Q24H SQ ; Start 10/01/21 at 13:00 Active Scripts Active Reported Sildenafil (Sildenafil Citrate) 20 Mg Tablet 20 Mg PO PRN 1X Cetirizine Hcl 10 Mg Tablet 1 Tab PO PRN DAILY PRN Acetaminophen 500 Mg Tablet 2 Tab PO PRN BID PRN 30 Days Vascepa (Icosapent Ethyl) 1 Gm Capsule 2 Cap PO BID AC 30 Days Tresiba (Insulin Degludec) 100 Unit/1 Ml Vial 40 Unit SQ DAILYWLUN Micardis (Telmisartan) 80 Mg Tablet 1 Tab PO DAILY Flomax (Tamsulosin Hcl) 0.4 Mg Cap.er.24h 1 Cap PO HS Pravastatin Sodium 80 Mg Tablet 1 Tab PO QHS Phenytoin Sodium Extended 300 Mg Capsule 1 Cap PO BIDWMEALS 30 Days Omeprazole 20 Mg Capsule.dr 1 Cap PO 0730 Humalog (Insulin Lispro) 100 Unit/1 Ml Vial 26 Unit SQ BID WMEALS Cinnamon (Cinnamon Bark) 500 Mg Capsule 1,000 Mg PO BID Chlorthalidone (Chlorthalidone) 25 Mg Tablet 25 Mg PO DAILY Carvedilol 25 Mg Tablet 25 Mg PO BIDWMEALS Aspirin 81 Mg Tab.chew 1 Tab PO DAILY Allergies Allergies: Coded Allergies: No Known Drug Allergies (Unverified , 09/30/21) ROS Review of System As per HPI, rest f the ROS is negative Physical Exam Physical Exam General: NAD HEENT: PERRLA, EOMI, OM moist Lungs: CTA Bilat, Non labored respirations Heart: S1S2 Abdomen: Soft obese, NT Extremities: No edema or Cyanosis Skin: No significant lesion or Rash Neuro: Grossly normal Psych/Mental Status: Cooperative No Cazares Vital Signs Vital Signs Date Time Temp Pulse Resp B/P (MAP) Pulse Ox O2 Delivery O2 Flow Rate FiO2 10/01/21 11:27 77 191/72 10/01/21 11:00 98.0 16 97 Nasal Cannula 2.0 98.0 Assessment & Plan JOHNATHAN- , Stable renal function. Non Oliguric E-Lytes stable. CT abdomen Unremarkable Kidneys and bladder Supportive care, avoid nephrotoxins. Strict I/O, maintain fluid balance Pyuria- UA WBC's +, Nitrites/Esterse negative . Patient asymptomatic Acute respiratory failure secondary to pneumonia- Abnormal CT of the chest- Patchy groundglass opacity in lungs bilaterally favored to be infectious or inflammatory in etiology. Hypertension- BP high,Antihypertensives- Including ARB and Chlorthalidone Status post left below-knee amputation. Anemia - Monitor. No prior labs for comparison Labs Labs Laboratory Tests Test 09/30/21 19:55 09/30/21 20:10 09/30/21 20:40 09/30/21 22:40 Urine Collection Type Unknown Urine Color Yellow Urine Clarity Clear Urine pH 6.0 (<5.0-8.0) Urine Specific [place] 1.020 (1.000-1.030) Urine Protein 100 mg/dL (NEG-TRACE) Urine Glucose (UA) 100 mg/dL (NEG) Urine Ketones (Stick) Negative mg/dL (NEG) Urine Blood Small (NEG) Urine Nitrite Negative (NEG) Urine Bilirubin Negative (NEG) Urine Urobilinogen Dipstick 0.2 mg/dL (0.2 mg/dL) Urine Leukocyte Esterase Negative (NEG) Urine RBC 3-5 /HPF (0-2) Urine WBC 20-40 /HPF (0-4) Urine Squamous Epithelial Cells Few /LPF Urine Bacteria 0 /HPF (0-FEW) Urine Hyaline Casts Few /HPF Urine Granular Casts Occasional /HPF Urine Opiates Screen Neg (NEG) Urine Methadone Screen Neg (NEG) Urine Barbiturates Neg (NEG) Urine Phencyclidine Screen Neg (NEG) Urine Amphetamine/Methamphetamine Neg (NEG) Urine Benzodiazepines Screen Neg (NEG) Urine Cocaine Screen Neg (NEG) Urine Cannabinoids Screen Neg (NEG) Urine Ethyl Alcohol Neg (NEG) Influenza Type A Antigen Negative (NEGATIVE) Influenza Type B Antigen Negative (NEGATIVE) SARS-CoV-2 Antigen (Rapid) Negative (NEGATIVE) White Blood Count 18.0 x10^3/uL (4.0-11.0) Red Blood Count 3.01 x10^6/uL (4.30-5.70) Hemoglobin 10.5 g/dL (13.0-17.5) Hematocrit 31.6 % (39.0-53.0) Mean Corpuscular Volume 105 fL (79-100) Mean Corpuscular Hemoglobin 35 pg (25-35) Mean Corpuscular Hemoglobin Concent 33 g/dL (31-37) Red Cell Distribution Width 14.3 % (11.5-14.5) Platelet Count 415 x10^3/uL (140-400) Neutrophils (%) (Auto) 85 % (31-73) Lymphocytes (%) (Auto) 6 % (24-48) Monocytes (%) (Auto) 8 % (0-9) Eosinophils (%) (Auto) 1 % (0-3) Basophils (%) (Auto) 0 % (0-3) Neutrophils # (Auto) 15.3 x10^3/uL (1.8-7.7) Lymphocytes # (Auto) 1.0 x10^3/uL (1.0-4.8) Monocytes # (Auto) 1.5 x10^3/uL (0.0-1.1) Eosinophils # (Auto) 0.1 x10^3/uL (0.0-0.7) Basophils # (Auto) 0.1 x10^3/uL (0.0-0.2) Segmented Neutrophils % 82 % (35-66) Band Neutrophils % 2 % (0-9) Lymphocytes % 7 % (24-48) Monocytes % 8 % (0-10) Eosinophils % 1 % (0-5) Platelet Estimate Increased (ADEQUATE) Polychromasia Slight Macrocytosis Slight Sodium Level 137 mmol/L (136-145) Potassium Level 4.5 mmol/L (3.5-5.1) Chloride Level 101 mmol/L (98-107) Carbon Dioxide Level 24 mmol/L (21-32) Anion Gap 12 (6-14) Blood Urea Nitrogen 44 mg/dL (8-26) Creatinine 2.0 mg/dL (0.7-1.3) Estimated GFR (Cockcroft-Gault) 32.4 BUN/Creatinine Ratio 22 (6-20) Glucose Level 93 mg/dL (70-99) Calcium Level 8.4 mg/dL (8.5-10.1) Total Bilirubin 0.2 mg/dL (0.2-1.0) Aspartate Amino Transf (AST/SGOT) 36 U/L (15-37) Alanine Aminotransferase (ALT/SGPT) 46 U/L (16-63) Alkaline Phosphatase 157 U/L (46-116) Troponin I High Sensitivity 16 ng/L (4-75) Total Protein 8.9 g/dL (6.4-8.2) Albumin 2.1 g/dL (3.4-5.0) Albumin/Globulin Ratio 0.3 (1.0-1.7) Lipase 110 U/L (73-393) Glucose (Fingerstick) 72 mg/dL (70-99) O2 Saturation 94 % (92-99) Arterial Blood pH 7.38 (7.35-7.45) Arterial Blood pCO2 at Patient Temp 43 mmHg (35-46) Arterial Blood pO2 at Patient Temp 76 mmHg (65-108) Arterial Blood HCO3 25 mmol/L (21-28) Arterial Blood Base Excess -1 mmol/L (-3-3) Oxyhemoglobin 93.3 % Methemoglobin 0.4 % (0.0-1.9) Carbon Monoxide, Quantitative 0.3 % (0.0-1.9) FiO2 28 (2l nc) Test 09/30/21 22:55 10/01/21 08:30 Lactic Acid Level 1.6 mmol/L (0.4-2.0) [id number] Natriuretic Peptide 1301 pg/mL (0-449) White Blood Count 11.4 x10^3/uL (4.0-11.0) Red Blood Count 2.72 x10^6/uL (4.30-5.70) Hemoglobin 9.2 g/dL (13.0-17.5) Hematocrit 28.5 % (39.0-53.0) Mean Corpuscular Volume 105 fL (79-100) Mean Corpuscular Hemoglobin 34 pg (25-35) Mean Corpuscular Hemoglobin Concent 32 g/dL (31-37) Red Cell Distribution Width 14.3 % (11.5-14.5) Platelet Count 367 x10^3/uL (140-400) Neutrophils (%) (Auto) 76 % (31-73) Lymphocytes (%) (Auto) 11 % (24-48) Monocytes (%) (Auto) 12 % (0-9) Eosinophils (%) (Auto) 1 % (0-3) Basophils (%) (Auto) 0 % (0-3) Neutrophils # (Auto) 8.6 x10^3/uL (1.8-7.7) Lymphocytes # (Auto) 1.2 x10^3/uL (1.0-4.8) Monocytes # (Auto) 1.3 x10^3/uL (0.0-1.1) Eosinophils # (Auto) 0.1 x10^3/uL (0.0-0.7) Basophils # (Auto) 0.0 x10^3/uL (0.0-0.2) Sodium Level 135 mmol/L (136-145) Potassium Level 4.4 mmol/L (3.5-5.1) Chloride Level 102 mmol/L (98-107) Carbon Dioxide Level 27 mmol/L (21-32) Anion Gap 6 (6-14) Blood Urea Nitrogen 39 mg/dL (8-26) Creatinine 1.8 mg/dL (0.7-1.3) Estimated GFR (Cockcroft-Gault) 36.6 BUN/Creatinine Ratio 22 (6-20) Glucose Level 120 mg/dL (70-99) Calcium Level 8.1 mg/dL (8.5-10.1) Total Bilirubin 0.2 mg/dL (0.2-1.0) Aspartate Amino Transf (AST/SGOT) 31 U/L (15-37) Alanine Aminotransferase (ALT/SGPT) 40 U/L (16-63) Alkaline Phosphatase 142 U/L (46-116) Total Protein 8.1 g/dL (6.4-8.2) Albumin 2.0 g/dL (3.4-5.0) Albumin/Globulin Ratio 0.3 (1.0-1.7) Laboratory Tests Test 09/30/21 19:55 09/30/21 20:10 09/30/21 20:40 09/30/21 22:40 Urine Collection Type Unknown Urine Color Yellow Urine Clarity Clear Urine pH 6.0 (<5.0-8.0) Urine Specific [place] 1.020 (1.000-1.030) Urine Protein 100 mg/dL (NEG-TRACE) Urine Glucose (UA) 100 mg/dL (NEG) Urine Ketones (Stick) Negative mg/dL (NEG) Urine Blood Small (NEG) Urine Nitrite Negative (NEG) Urine Bilirubin Negative (NEG) Urine Urobilinogen Dipstick 0.2 mg/dL (0.2 mg/dL) Urine Leukocyte Esterase Negative (NEG) Urine RBC 3-5 /HPF (0-2) Urine WBC 20-40 /HPF (0-4) Urine Squamous Epithelial Cells Few /LPF Urine Bacteria 0 /HPF (0-FEW) Urine Hyaline Casts Few /HPF Urine Granular Casts Occasional /HPF Urine Opiates Screen Neg (NEG) Urine Methadone Screen Neg (NEG) Urine Barbiturates Neg (NEG) Urine Phencyclidine Screen Neg (NEG) Urine Amphetamine/Methamphetamine Neg (NEG) Urine Benzodiazepines Screen Neg (NEG) Urine Cocaine Screen Neg (NEG) Urine Cannabinoids Screen Neg (NEG) Urine Ethyl Alcohol Neg (NEG) Influenza Type A Antigen Negative (NEGATIVE) Influenza Type B Antigen Negative (NEGATIVE) SARS-CoV-2 Antigen (Rapid) Negative (NEGATIVE) White Blood Count 18.0 x10^3/uL (4.0-11.0) Red Blood Count 3.01 x10^6/uL (4.30-5.70) Hemoglobin 10.5 g/dL (13.0-17.5) Hematocrit 31.6 % (39.0-53.0) Mean Corpuscular Volume 105 fL (79-100) Mean Corpuscular Hemoglobin 35 pg (25-35) Mean Corpuscular Hemoglobin Concent 33 g/dL (31-37) Red Cell Distribution Width 14.3 % (11.5-14.5) Platelet Count 415 x10^3/uL (140-400) Neutrophils (%) (Auto) 85 % (31-73) Lymphocytes (%) (Auto) 6 % (24-48) Monocytes (%) (Auto) 8 % (0-9) Eosinophils (%) (Auto) 1 % (0-3) Basophils (%) (Auto) 0 % (0-3) Neutrophils # (Auto) 15.3 x10^3/uL (1.8-7.7) Lymphocytes # (Auto) 1.0 x10^3/uL (1.0-4.8) Monocytes # (Auto) 1.5 x10^3/uL (0.0-1.1) Eosinophils # (Auto) 0.1 x10^3/uL (0.0-0.7) Basophils # (Auto) 0.1 x10^3/uL (0.0-0.2) Segmented Neutrophils % 82 % (35-66) Band Neutrophils % 2 % (0-9) Lymphocytes % 7 % (24-48) Monocytes % 8 % (0-10) Eosinophils % 1 % (0-5) Platelet Estimate Increased (ADEQUATE) Polychromasia Slight Macrocytosis Slight Sodium Level 137 mmol/L (136-145) Potassium Level 4.5 mmol/L (3.5-5.1) Chloride Level 101 mmol/L (98-107) Carbon Dioxide Level 24 mmol/L (21-32) Anion Gap 12 (6-14) Blood Urea Nitrogen 44 mg/dL (8-26) Creatinine 2.0 mg/dL (0.7-1.3) Estimated GFR (Cockcroft-Gault) 32.4 BUN/Creatinine Ratio 22 (6-20) Glucose Level 93 mg/dL (70-99) Calcium Level 8.4 mg/dL (8.5-10.1) Total Bilirubin 0.2 mg/dL (0.2-1.0) Aspartate Amino Transf (AST/SGOT) 36 U/L (15-37) Alanine Aminotransferase (ALT/SGPT) 46 U/L (16-63) Alkaline Phosphatase 157 U/L (46-116) Troponin I High Sensitivity 16 ng/L (4-75) Total Protein 8.9 g/dL (6.4-8.2) Albumin 2.1 g/dL (3.4-5.0) Albumin/Globulin Ratio 0.3 (1.0-1.7) Lipase 110 U/L (73-393) Glucose (Fingerstick) 72 mg/dL (70-99) O2 Saturation 94 % (92-99) Arterial Blood pH 7.38 (7.35-7.45) Arterial Blood pCO2 at Patient Temp 43 mmHg (35-46) Arterial Blood pO2 at Patient Temp 76 mmHg (65-108) Arterial Blood HCO3 25 mmol/L (21-28) Arterial Blood Base Excess -1 mmol/L (-3-3) Oxyhemoglobin 93.3 % Methemoglobin 0.4 % (0.0-1.9) Carbon Monoxide, Quantitative 0.3 % (0.0-1.9) FiO2 28 (2l nc) Test 09/30/21 22:55 10/01/21 08:30 Lactic Acid Level 1.6 mmol/L (0.4-2.0) [id number]-Type Natriuretic Peptide 1301 pg/mL (0-449) White Blood Count 11.4 x10^3/uL (4.0-11.0) Red Blood Count 2.72 x10^6/uL (4.30-5.70) Hemoglobin 9.2 g/dL (13.0-17.5) Hematocrit 28.5 % (39.0-53.0) Mean Corpuscular Volume 105 fL (79-100) Mean Corpuscular Hemoglobin 34 pg (25-35) Mean Corpuscular Hemoglobin Concent 32 g/dL (31-37) Red Cell Distribution Width 14.3 % (11.5-14.5) Platelet Count 367 x10^3/uL (140-400) Neutrophils (%) (Auto) 76 % (31-73) Lymphocytes (%) (Auto) 11 % (24-48) Monocytes (%) (Auto) 12 % (0-9) Eosinophils (%) (Auto) 1 % (0-3) Basophils (%) (Auto) 0 % (0-3) Neutrophils # (Auto) 8.6 x10^3/uL (1.8-7.7) Lymphocytes # (Auto) 1.2 x10^3/uL (1.0-4.8) Monocytes # (Auto) 1.3 x10^3/uL (0.0-1.1) Eosinophils # (Auto) 0.1 x10^3/uL (0.0-0.7) Basophils # (Auto) 0.0 x10^3/uL (0.0-0.2) Sodium Level 135 mmol/L (136-145) Potassium Level 4.4 mmol/L (3.5-5.1) Chloride Level 102 mmol/L (98-107) Carbon Dioxide Level 27 mmol/L (21-32) Anion Gap 6 (6-14) Blood Urea Nitrogen 39 mg/dL (8-26) Creatinine 1.8 mg/dL (0.7-1.3) Estimated GFR (Cockcroft-Gault) 36.6 BUN/Creatinine Ratio 22 (6-20) Glucose Level 120 mg/dL (70-99) Calcium Level 8.1 mg/dL (8.5-10.1) Total Bilirubin 0.2 mg/dL (0.2-1.0) Aspartate Amino Transf (AST/SGOT) 31 U/L (15-37) Alanine Aminotransferase (ALT/SGPT) 40 U/L (16-63) Alkaline Phosphatase 142 U/L (46-116) Total Protein 8.1 g/dL (6.4-8.2) Albumin 2.0 g/dL (3.4-5.0) Albumin/Globulin Ratio 0.3 (1.0-1.7) Review All relevant outside records, renal labs, imaging studies, telemetry/EKG's were reviewed. Images Images CT of chest, abdomen and pelvis without contrast INDICATION: Hypoxia, short of air, abdominal pain TECHNIQUE: Sequential axial images through the chest, abdomen and pelvis obtained without IV contrast. Sagittal and coronal reformatted images were reconstructed from the axial data and reviewed. Exposure: One or more of the following in the visualized dose reduction techniques were utilized for this examination: 1. Automated exposure control 2. Adjustment of the MA and/or KV according to patient size 3. Use of iterative of reconstructive technique Comparisons: Chest x-ray same day FINDINGS: Visualized portions of the thyroid are unremarkable. No enlarged mediastinal lymph nodes are identified. Heart size is normal. No pericardial effusion. Moderate coronary artery calcifications. Thoracic aorta has normal course and caliber. Pulmonary artery is not enlarged. Airways are patent. Patchy groundglass opacity noted lungs bilaterally. No pneum othorax. No suspicious lung nodules. No pleural effusion or thickening. Evaluation of solid organs limited secondary to noncontrast technique. Liver, spleen, pancreas and adrenals are unremarkable. Gallbladder is unremarkable. No perinephric inflammation or hydronephrosis. No renal or ureteral calculi are identified. Bladder is decompressed not well evaluated. Prostate is not enlarged. Moderate amount stool noted in colon. Appendix is nonidentified. No free intra- abdominal air or fluid. No obstruction. Abdominal aorta has normal course and caliber. No enlarged intra-abdominal lymph nodes are identified. No suspicious osseous lesions or acute fractures. IMPRESSION: 1. Patchy groundglass opacity in lungs bilaterally favored to be infectious or inflammatory in etiology. 2. No acute process identified within the abdomen or pelvis. Electronically signed by: Ruslan Quezada MD (09/30/2021 9:55 PM) [facility] MD Oct 01, 2021 13:39
[2021-10-01] MEDS: NON FORMULARY ITEM (Icosapent Ethyl (Vascepa) 2 CAP) PO SCH (17:30)
[2021-10-01] MEDS: INSULIN LISPRO 300 UNITS/3 ML VIAL. SQ SCH (18:01)
--- NOTE | 2021-10-01 18:58 | EKG ---
[facility] [address] [place] [address] Test Date: 2021-09-30 Test Time: 19:20:05 Pat Name: HATTIE ESPINOZA Department: Room: [facility] 1 Gender: M [employer]: : 1940 Requested By: BONIFACIO MCKENZIE Order Number: [id number] Reading MD: Rm Duggan MD Measurements Intervals [place] Rate: 91 P: 37 [place]: 160 QRS: -40 QRSD: 84 T: 47 QT: 350 QTc: 432 Interpretive Statements SINUS RHYTHM ABNORMAL LEFT AXIS DEVIATION QRS(T) CONTOUR ABNORMALITY CONSISTENT WITH ANTEROSEPTAL INFARCT PROBABLY OLD CONSISTENT WITH INFERIOR INFARCT PROBABLY OLD ABNORMAL ECG Electronically Signed On 10-02-2021 15:56:39 APPLICATION INTEGRATION SPECIALIST by Rm Duggan MD
[2021-10-01] MEDS ORDERED: LABETALOL 20 MG/4 ML DISP.SYRIN. IVP PRN (19:30)
[2021-10-01] MEDS: TAMSULOSIN 0.4 MG CAP.ER.24H. PO SCH (20:47)
[2021-10-01] MEDS: ATORVASTATIN CALCIUM 20 MG TABLET PO SCH (20:47)
[2021-10-01] MEDS: LACTOBACILLUS RHAMNOSUS GG 1 CAPSULE. PO SCH (20:48)
[2021-10-01] MEDS: cefTRIAXone IV Push 1 GM VIAL. IVP SCH (20:54)
[2021-10-01] MEDS: AZITHROMYCIN 500 MG in IV NORMAL SALINE 250ML 250 ML IV SCH (20:57)
[2021-10-02 03:25] VITALS: BP 152/67
[2021-10-02 05:17] LABS: BASO % 1 % (0-3); EOS # 0.1 x10^3/uL (0.0-0.7); EOS % 2 % (0-3); HEMOGLOBIN 8.4 g/dL (13.0-17.5); LYMPH # 1.2 x10^3/uL (1.0-4.8); LYMPH % 18 % (24-48); MEAN CORPUSCULAR HEMOGLOBIN 35 pg (25-35); MEAN CORPUSCULAR HGB CONC 34 g/dL (31-37); MEAN CORPUSCULAR VOLUME 105 fL (79-100); MONO % 15 % (0-9); NEUT # 4.2 x10^3/uL (1.8-7.7); NEUT % 64 % (31-73); PLATELET COUNT 304 x10^3/uL (140-400); RED BLOOD COUNT 2.39 x10^6/uL (4.30-5.70); RED CELL DISTRIBUTION WIDTH 14.3 % (11.5-14.5); WHITE BLOOD COUNT 6.5 x10^3/uL (4.0-11.0)
[2021-10-02 05:31] LABS: ALBUMIN 1.8 g/dL (3.4-5.0); ALBUMIN/GLOBULIN RATIO 0.3 (1.0-1.7); CREATININE 1.8 mg/dL (0.7-1.3); GFR 36.6; POTASSIUM 4.6 mmol/L (3.5-5.1); TOTAL BILIRUBIN 0.1 mg/dL (0.2-1.0); TOTAL PROTEIN 7.7 g/dL (6.4-8.2)
[2021-10-02] MEDS: PANTOPRAZOLE 40 MG TABLET.DR. PO SCH (05:39)
[2021-10-02 07:00] VITALS: BP 196/76
[2021-10-02] MEDS: NON FORMULARY ITEM (Icosapent Ethyl (Vascepa) 2 CAP) PO SCH ×2 (07:30→17:30)
[2021-10-02] MEDS: INSULIN LISPRO 300 UNITS/3 ML VIAL. SQ SCH ×2 (08:00→17:35)
--- NOTE | 2021-10-02 08:20 | PDOC ---
PULMONARY PROGRESS NOTES DATE: 10/02/21 TIME: 08:19 Subjective The patient was pleasant on exam this morning, no overnight events. Currently on 2L NC at 95%, occ dry cough, feeling better today than yesterday, wounds to right toes, discussed with RN. Labs reviewed. Vitals Vital Signs Date Time Temp Pulse Resp B/P (MAP) Pulse Ox O2 Delivery O2 Flow Rate FiO2 10/02/21 03:25 97.6 63 20 152/67 (95) 97 Nasal Cannula 2.0 97.6 ROS: No Nausea, No Chest Pain, No Abdominal Pain General: Alert, No acute distress Lungs: Clear, Wheezing Cardiovascular: S1, S2 Abdomen: Soft, Non-tender Neuro Exam: Alert Extremities: No Edema Skin: Warm, No Rashes Labs Laboratory Tests Test 09/30/21 19:35 09/30/21 19:55 09/30/21 20:10 09/30/21 20:40 Coronavirus (COVID-19)(PCR) Not detected (NOT DETECTD) Urine Collection Type Unknown Urine Color Yellow Urine Clarity Clear Urine pH 6.0 (<5.0-8.0) Urine Specific [place] 1.020 (1.000-1.030) Urine Protein 100 mg/dL (NEG-TRACE) Urine Glucose (UA) 100 mg/dL (NEG) Urine Ketones (Stick) Negative mg/dL (NEG) Urine Blood Small (NEG) Urine Nitrite Negative (NEG) Urine Bilirubin Negative (NEG) Urine Urobilinogen Dipstick 0.2 mg/dL (0.2 mg/dL) Urine Leukocyte Esterase Negative (NEG) Urine RBC 3-5 /HPF (0-2) Urine WBC 20-40 /HPF (0-4) Urine Squamous Epithelial Cells Few /LPF Urine Bacteria 0 /HPF (0-FEW) Urine Hyaline Casts Few /HPF Urine Granular Casts Occasional /HPF Urine Opiates Screen Neg (NEG) Urine Methadone Screen Neg (NEG) Urine Barbiturates Neg (NEG) Urine Phencyclidine Screen Neg (NEG) Urine Amphetamine/Methamphetamine Neg (NEG) Urine Benzodiazepines Screen Neg (NEG) Urine Cocaine Screen Neg (NEG) Urine Cannabinoids Screen Neg (NEG) Urine Ethyl Alcohol Neg (NEG) Influenza Type A Antigen Negative (NEGATIVE) Influenza Type B Antigen Negative (NEGATIVE) SARS-CoV-2 Antigen (Rapid) Negative (NEGATIVE) White Blood Count 18.0 x10^3/uL (4.0-11.0) Red Blood Count 3.01 x10^6/uL (4.30-5.70) Hemoglobin 10.5 g/dL (13.0-17.5) Hematocrit 31.6 % (39.0-53.0) Mean Corpuscular Volume 105 fL (79-100) Mean Corpuscular Hemoglobin 35 pg (25-35) Mean Corpuscular Hemoglobin Concent 33 g/dL (31-37) Red Cell Distribution Width 14.3 % (11.5-14.5) Platelet Count 415 x10^3/uL (140-400) Neutrophils (%) (Auto) 85 % (31-73) Lymphocytes (%) (Auto) 6 % (24-48) Monocytes (%) (Auto) 8 % (0-9) Eosinophils (%) (Auto) 1 % (0-3) Basophils (%) (Auto) 0 % (0-3) Neutrophils # (Auto) 15.3 x10^3/uL (1.8-7.7) Lymphocytes # (Auto) 1.0 x10^3/uL (1.0-4.8) Monocytes # (Auto) 1.5 x10^3/uL (0.0-1.1) Eosinophils # (Auto) 0.1 x10^3/uL (0.0-0.7) Basophils # (Auto) 0.1 x10^3/uL (0.0-0.2) Segmented Neutrophils % 82 % (35-66) Band Neutrophils % 2 % (0-9) Lymphocytes % 7 % (24-48) Monocytes % 8 % (0-10) Eosinophils % 1 % (0-5) Platelet Estimate Increased (ADEQUATE) Polychromasia Slight Macrocytosis Slight Sodium Level 137 mmol/L (136-145) Potassium Level 4.5 mmol/L (3.5-5.1) Chloride Level 101 mmol/L (98-107) Carbon Dioxide Level 24 mmol/L (21-32) Anion Gap 12 (6-14) Blood Urea Nitrogen 44 mg/dL (8-26) Creatinine 2.0 mg/dL (0.7-1.3) Estimated GFR (Cockcroft-Gault) 32.4 BUN/Creatinine Ratio 22 (6-20) Glucose Level 93 mg/dL (70-99) Calcium Level 8.4 mg/dL (8.5-10.1) Total Bilirubin 0.2 mg/dL (0.2-1.0) Aspartate Amino Transf (AST/SGOT) 36 U/L (15-37) Alanine Aminotransferase (ALT/SGPT) 46 U/L (16-63) Alkaline Phosphatase 157 U/L (46-116) Troponin I High Sensitivity 16 ng/L (4-75) Total Protein 8.9 g/dL (6.4-8.2) Albumin 2.1 g/dL (3.4-5.0) Albumin/Globulin Ratio 0.3 (1.0-1.7) Lipase 110 U/L (73-393) Glucose (Fingerstick) 72 mg/dL (70-99) Test 09/30/21 22:40 09/30/21 22:55 10/01/21 08:30 10/02/21 04:10 O2 Saturation 94 % (92-99) Arterial Blood pH 7.38 (7.35-7.45) Arterial Blood pCO2 at Patient Temp 43 mmHg (35-46) Arterial Blood pO2 at Patient Temp 76 mmHg (65-108) Arterial Blood HCO3 25 mmol/L (21-28) Arterial Blood Base Excess -1 mmol/L (-3-3) Oxyhemoglobin 93.3 % Methemoglobin 0.4 % (0.0-1.9) Carbon Monoxide, Quantitative 0.3 % (0.0-1.9) FiO2 28 (2l nc) Lactic Acid Level 1.6 mmol/L (0.4-2.0) NF-Flt-L-Type Natriuretic Peptide 1301 pg/mL (0-449) White Blood Count 11.4 x10^3/uL (4.0-11.0) 6.5 x10^3/uL (4.0-11.0) Red Blood Count 2.72 x10^6/uL (4.30-5.70) 2.39 x10^6/uL (4.30-5.70) Hemoglobin 9.2 g/dL (13.0-17.5) 8.4 g/dL (13.0-17.5) Hematocrit 28.5 % (39.0-53.0) 25.0 % (39.0-53.0) Mean Corpuscular Volume 105 fL (79-100) 105 fL (79-100) Mean Corpuscular Hemoglobin 34 pg (25-35) 35 pg (25-35) Mean Corpuscular Hemoglobin Concent 32 g/dL (31-37) 34 g/dL (31-37) Red Cell Distribution Width 14.3 % (11.5-14.5) 14.3 % (11.5-14.5) Platelet Count 367 x10^3/uL (140-400) 304 x10^3/uL (140-400) Neutrophils (%) (Auto) 76 % (31-73) 64 % (31-73) Lymphocytes (%) (Auto) 11 % (24-48) 18 % (24-48) Monocytes (%) (Auto) 12 % (0-9) 15 % (0-9) Eosinophils (%) (Auto) 1 % (0-3) 2 % (0-3) Basophils (%) (Auto) 0 % (0-3) 1 % (0-3) Neutrophils # (Auto) 8.6 x10^3/uL (1.8-7.7) 4.2 x10^3/uL (1.8-7.7) Lymphocytes # (Auto) 1.2 x10^3/uL (1.0-4.8) 1.2 x10^3/uL (1.0-4.8) Monocytes # (Auto) 1.3 x10^3/uL (0.0-1.1) 1.0 x10^3/uL (0.0-1.1) Eosinophils # (Auto) 0.1 x10^3/uL (0.0-0.7) 0.1 x10^3/uL (0.0-0.7) Basophils # (Auto) 0.0 x10^3/uL (0.0-0.2) 0.0 x10^3/uL (0.0-0.2) Sodium Level 135 mmol/L (136-145) 138 mmol/L (136-145) Potassium Level 4.4 mmol/L (3.5-5.1) 4.6 mmol/L (3.5-5.1) Chloride Level 102 mmol/L (98-107) 104 mmol/L (98-107) Carbon Dioxide Level 27 mmol/L (21-32) 29 mmol/L (21-32) Anion Gap 6 (6-14) 5 (6-14) Blood Urea Nitrogen 39 mg/dL (8-26) 38 mg/dL (8-26) Creatinine 1.8 mg/dL (0.7-1.3) 1.8 mg/dL (0.7-1.3) Estimated GFR (Cockcroft-Gault) 36.6 36.6 BUN/Creatinine Ratio 22 (6-20) 21 (6-20) Glucose Level 120 mg/dL (70-99) 156 mg/dL (70-99) Calcium Level 8.1 mg/dL (8.5-10.1) 8.0 mg/dL (8.5-10.1) Total Bilirubin 0.2 mg/dL (0.2-1.0) 0.1 mg/dL (0.2-1.0) Aspartate Amino Transf (AST/SGOT) 31 U/L (15-37) 31 U/L (15-37) Alanine Aminotransferase (ALT/SGPT) 40 U/L (16-63) 37 U/L (16-63) Alkaline Phosphatase 142 U/L (46-116) 129 U/L (46-116) Total Protein 8.1 g/dL (6.4-8.2) 7.7 g/dL (6.4-8.2) Albumin 2.0 g/dL (3.4-5.0) 1.8 g/dL (3.4-5.0) Albumin/Globulin Ratio 0.3 (1.0-1.7) 0.3 (1.0-1.7) Laboratory Tests Test 10/01/21 08:30 10/02/21 04:10 White Blood Count 11.4 x10^3/uL (4.0-11.0) 6.5 x10^3/uL (4.0-11.0) Red Blood Count 2.72 x10^6/uL (4.30-5.70) 2.39 x10^6/uL (4.30-5.70) Hemoglobin 9.2 g/dL (13.0-17.5) 8.4 g/dL (13.0-17.5) Hematocrit 28.5 % (39.0-53.0) 25.0 % (39.0-53.0) Mean Corpuscular Volume 105 fL (79-100) 105 fL (79-100) Mean Corpuscular Hemoglobin 34 pg (25-35) 35 pg (25-35) Mean Corpuscular Hemoglobin Concent 32 g/dL (31-37) 34 g/dL (31-37) Red Cell Distribution Width 14.3 % (11.5-14.5) 14.3 % (11.5-14.5) Platelet Count 367 x10^3/uL (140-400) 304 x10^3/uL (140-400) Neutrophils (%) (Auto) 76 % (31-73) 64 % (31-73) Lymphocytes (%) (Auto) 11 % (24-48) 18 % (24-48) Monocytes (%) (Auto) 12 % (0-9) 15 % (0-9) Eosinophils (%) (Auto) 1 % (0-3) 2 % (0-3) Basophils (%) (Auto) 0 % (0-3) 1 % (0-3) Neutrophils # (Auto) 8.6 x10^3/uL (1.8-7.7) 4.2 x10^3/uL (1.8-7.7) Lymphocytes # (Auto) 1.2 x10^3/uL (1.0-4.8) 1.2 x10^3/uL (1.0-4.8) Monocytes # (Auto) 1.3 x10^3/uL (0.0-1.1) 1.0 x10^3/uL (0.0-1.1) Eosinophils # (Auto) 0.1 x10^3/uL (0.0-0.7) 0.1 x10^3/uL (0.0-0.7) Basophils # (Auto) 0.0 x10^3/uL (0.0-0.2) 0.0 x10^3/uL (0.0-0.2) Sodium Level 135 mmol/L (136-145) 138 mmol/L (136-145) Potassium Level 4.4 mmol/L (3.5-5.1) 4.6 mmol/L (3.5-5.1) Chloride Level 102 mmol/L (98-107) 104 mmol/L (98-107) Carbon Dioxide Level 27 mmol/L (21-32) 29 mmol/L (21-32) Anion Gap 6 (6-14) 5 (6-14) Blood Urea Nitrogen 39 mg/dL (8-26) 38 mg/dL (8-26) Creatinine 1.8 mg/dL (0.7-1.3) 1.8 mg/dL (0.7-1.3) Estimated GFR (Cockcroft-Gault) 36.6 36.6 BUN/Creatinine Ratio 22 (6-20) 21 (6-20) Glucose Level 120 mg/dL (70-99) 156 mg/dL (70-99) Calcium Level 8.1 mg/dL (8.5-10.1) 8.0 mg/dL (8.5-10.1) Total Bilirubin 0.2 mg/dL (0.2-1.0) 0.1 mg/dL (0.2-1.0) Aspartate Amino Transf (AST/SGOT) 31 U/L (15-37) 31 U/L (15-37) Alanine Aminotransferase (ALT/SGPT) 40 U/L (16-63) 37 U/L (16-63) Alkaline Phosphatase 142 U/L (46-116) 129 U/L (46-116) Total Protein 8.1 g/dL (6.4-8.2) 7.7 g/dL (6.4-8.2) Albumin 2.0 g/dL (3.4-5.0) 1.8 g/dL (3.4-5.0) Albumin/Globulin Ratio 0.3 (1.0-1.7) 0.3 (1.0-1.7) Medications Active Scripts Medications Dose Route/Sig Max Daily Dose Days Date Category Sildenafil (Sildenafil Citrate) 20 Mg Tablet 20 Mg PO PRN 1X 10/01/21 Reported Cetirizine Hcl 10 Mg Tablet 1 Tab PO PRN DAILY PRN 10/01/21 Reported Acetaminophen 500 Mg Tablet 2 Tab PO PRN BID PRN 30 10/01/21 Reported Vascepa (Icosapent Ethyl) 1 Gm Capsule 2 Cap PO BID AC 30 10/01/21 Reported Tresiba (Insulin Degludec) 100 Unit/1 Ml Vial 40 Unit SQ DAILYWLUN 10/01/21 Reported Micardis (Telmisartan) 80 Mg Tablet 1 Tab PO DAILY 10/01/21 Reported Flomax (Tamsulosin Hcl) 0.4 Mg Cap.er.24h 1 Cap PO HS 10/01/21 Reported Pravastatin Sodium 80 Mg Tablet 1 Tab PO QHS 10/01/21 Reported Phenytoin Sodium Extended 300 Mg Capsule 1 Cap PO BIDWMEALS 30 10/01/21 Reported Omeprazole 20 Mg Capsule.dr 1 Cap PO 0730 10/01/21 Reported Humalog (Insulin Lispro) 100 Unit/1 Ml Vial 26 Unit SQ BID WMEALS 10/01/21 Reported Cinnamon (Cinnamon Bark) 500 Mg Capsule 1,000 Mg PO BID 10/01/21 Reported Chlorthalidone (Chlorthalidone) 25 Mg Tablet 25 Mg PO DAILY 10/01/21 Reported Carvedilol 25 Mg Tablet 25 Mg PO BIDWMEALS 10/01/21 Reported Aspirin 81 Mg Tab.chew 1 Tab PO DAILY 10/01/21 Reported Impression . 1. Acute respiratory failure secondary to pneumonia, rule out congestive heart failure. 2. Abnormal CT of the chest. 3. Obesity, suspect obstructive sleep apnea-hypopnea syndrome. 4. Hypertension. 5. Gastroesophageal reflux disease. 6. Status post left below-knee amputation. 7. Leukocytosis. 8. Acute kidney injury. Plan . Updated 10/02 Patient wishes to follow-up with a PCP from [facility] Continue to titrate FiO2 down; currently on 2L NC O2 95% Continue Antibiotics Lovenox for prophylaxis Recommend wound care for right toe wound assessment; discussed with nurse COVID-19 PCR Negative Bronchodilator?? Labs Reviewed Microbiology Reviewed; No growth blood or urine after [address] Chest/Abd/Pelvis IMPRESSION: 1. Patchy groundglass opacity in lungs bilaterally favored to be infectious or inflammatory in etiology. 2. No acute process identified within the abdomen or pelvis. PLAN AND RECOMMENDATIONS: 1. Titrate FiO2 to keep O2 saturation 90%. 2. Continue Rocephin and azithromycin. 3. Lovenox for DVT prophylaxis. 4. Pepcid for stress ulcer prophylaxis. 5. I do recommend echocardiogram. 6. Follow up COVID PCR testing. 7. If his COVID PCR testing negative, start bronchodilator. 8. I do recommend a sleep study as an outpatient. 9. He would require better blood pressure control. 10. The findings and recommendations were discussed with RN. ANTONIO DEL CASTILLO MD Oct 02, 2021 08:20
[2021-10-02] MEDS: ASPIRIN CHEWABLE 81 MG TABLET. PO SCH (08:59)
[2021-10-02] MEDS: LACTOBACILLUS RHAMNOSUS GG 1 CAPSULE. PO SCH ×2 (08:59→20:45)
[2021-10-02] MEDS: CHLORTHALIDONE 25 MG TABLET. PO SCH (08:59)
[2021-10-02] MEDS: PHENYTOIN SODIUM EXTENDED 100 MG CAPSULE PO SCH ×2 (08:59→09:01)
[2021-10-02] MEDS: LOSARTAN POTASSIUM 50 MG TABLET. PO SCH (09:00)
[2021-10-02] MEDS: CARVEDILOL 12.5 MG TABLET. PO SCH ×2 (09:00→17:42)
[2021-10-02 10:53] VITALS: BP 144/66
--- NOTE | 2021-10-02 11:06 | PDOC ---
[employer] PROGRESS NOTE Date of Service DOS: DATE: 10/02/21 TIME: 11:03 Chief Complaint Chief Complaint Respiratory failure Severe pneumonia Obesity Hypertension GERD History of left BKA Leukocytosis Acute kidney injury History of Present Illness History of Present Illness 10/02/2021 Patient seen and examined Chart reviewed Discussed with RN Discussed with case management He is on IV azithromycin and IV Rocephin Vitals/I&O Vitals/I&O: Vital Signs Date Time Temp Pulse Resp B/P (MAP) Pulse Ox O2 Delivery O2 Flow Rate FiO2 10/02/21 10:53 98.2 87 18 144/66 (92) 95 Room Air 98.2 10/02/21 07:00 2.0 I & O 10/01/21 10/01/21 10/02/21 15:00 23:00 07:00 Intake Total 118 ml 250 ml 120 ml Output Total 1300 ml 200 ml Balance 118 ml -1050 ml -80 ml Physical Exam General: Alert, Cooperative, mild distress Lungs: Clear, Wheezing Abdomen: Soft (obese, ) Extremities: No edema Skin: No significant lesion Labs Labs: Laboratory Tests Test 10/02/21 04:10 White Blood Count 6.5 x10^3/uL (4.0-11.0) Red Blood Count 2.39 x10^6/uL (4.30-5.70) Hemoglobin 8.4 g/dL (13.0-17.5) Hematocrit 25.0 % (39.0-53.0) Mean Corpuscular Volume 105 fL (79-100) Mean Corpuscular Hemoglobin 35 pg (25-35) Mean Corpuscular Hemoglobin Concent 34 g/dL (31-37) Red Cell Distribution Width 14.3 % (11.5-14.5) Platelet Count 304 x10^3/uL (140-400) Neutrophils (%) (Auto) 64 % (31-73) Lymphocytes (%) (Auto) 18 % (24-48) Monocytes (%) (Auto) 15 % (0-9) Eosinophils (%) (Auto) 2 % (0-3) Basophils (%) (Auto) 1 % (0-3) Neutrophils # (Auto) 4.2 x10^3/uL (1.8-7.7) Lymphocytes # (Auto) 1.2 x10^3/uL (1.0-4.8) Monocytes # (Auto) 1.0 x10^3/uL (0.0-1.1) Eosinophils # (Auto) 0.1 x10^3/uL (0.0-0.7) Basophils # (Auto) 0.0 x10^3/uL (0.0-0.2) Sodium Level 138 mmol/L (136-145) Potassium Level 4.6 mmol/L (3.5-5.1) Chloride Level 104 mmol/L (98-107) Carbon Dioxide Level 29 mmol/L (21-32) Anion Gap 5 (6-14) Blood Urea Nitrogen 38 mg/dL (8-26) Creatinine 1.8 mg/dL (0.7-1.3) Estimated GFR (Cockcroft-Gault) 36.6 BUN/Creatinine Ratio 21 (6-20) Glucose Level 156 mg/dL (70-99) Calcium Level 8.0 mg/dL (8.5-10.1) Total Bilirubin 0.1 mg/dL (0.2-1.0) Aspartate Amino Transf (AST/SGOT) 31 U/L (15-37) Alanine Aminotransferase (ALT/SGPT) 37 U/L (16-63) Alkaline Phosphatase 129 U/L (46-116) Total Protein 7.7 g/dL (6.4-8.2) Albumin 1.8 g/dL (3.4-5.0) Albumin/Globulin Ratio 0.3 (1.0-1.7) Assessment and Plan Assessmemt and Plan Problems Medical Problems: (1) Acute kidney failure Status: Acute (2) Hypoxia Status: Acute (3) Person under investigation for COVID-19 Status: Acute (4) Pneumonia Status: Acute (5) SIRS (systemic inflammatory response syndrome) Status: Acu Respiratory failure Severe pneumonia Obesity Hypertension GERD History of left BKA Leukocytosis Acute kidney injury Plan IV antibiotics Beta agonist O2 per nasal cannula Home meds DVT prophylaxis Full code Trend labs Encourage p.o. intake PT OT Appreciate subspecialist input Pulmonary and nephrology following Might need fpc after discharge? Per pulmonary recommendations please see the following and we certainly agree and appreciate their input; IMPRESSION: 1. Acute respiratory failure secondary to pneumonia, rule out congestive heart failure. 2. Abnormal CT of the chest. 3. Obesity, suspect obstructive sleep apnea-hypopnea syndrome. 4. Hypertension. 5. Gastroesophageal reflux disease. 6. Status post left below-knee amputation. 7. Leukocytosis. 8. Acute kidney injury. PLAN AND RECOMMENDATIONS: 1. Titrate FiO2 to keep O2 saturation 90%. 2. Continue Rocephin and azithromycin. 3. Lovenox for DVT prophylaxis. 4. Pepcid for stress ulcer prophylaxis. 5. I do recommend echocardiogram. 6. Follow up COVID PCR testing. 7. If his COVID PCR testing negative, start bronchodilator. 8. I do recommend a sleep study as an outpatient. 9. He would require better blood pressure control. 10. The findings and recommendations were discussed with RN. Comment Review of Relevant I have reviewed the following items jules (where applicable) has been applied. Medications: Current Medications Medications (Trade) Dose Ordered Sig/Cassandra Route PRN Reason Start Time Stop Time Status Last Admin Dose Admin Insulin Human Lispro (HumaLOG) 26 units BIDWMEALS SQ 10/01/21 17:00 10/02/21 08:00 Tamsulosin HCl (Flomax) 0.4 mg HS PO 10/01/21 21:00 10/01/21 20:47 Insulin Glargine (Lantus Syringe) 40 unit DAILYWLUN SQ 10/01/21 12:00 10/01/21 11:28 Atorvastatin Calcium (Lipitor) 20 mg QHS PO 10/01/21 21:00 10/01/21 20:47 Enoxaparin Sodium (Lovenox 40mg Syringe) 40 mg Q24H SQ 10/01/21 13:00 10/01/21 13:38 Azithromycin 500 mg/Sodium Chloride 250 ml @ 250 mls/hr Q24H IV 10/01/21 21:00 10/01/21 20:57 Ceftriaxone Sodium (Rocephin) 1 gm Q24H IVP 10/01/21 21:00 10/01/21 20:54 Lactobacillus Rhamnosus (Culturelle) 1 cap BID PO 10/01/21 21:00 10/02/21 08:59 Labetalol HCl (Normodyne Iv Push) 20 mg PRN Q4HRS PRN IVP HYPERTENSION 10/01/21 19:30 10/01/21 21:02 Justifications for Admission Other Justification ELADIO PATEL III DO Oct 02, 2021 11:06
[2021-10-02] MEDS: INSULIN GLARGINE SYRINGE. SQ SCH (12:00)
--- NOTE | 2021-10-02 12:09 | NUR ---
SS following for discharge planning. SS reviewed pt chart and discussed with pt RN. Pt is from [facility], ; fax [phone]. COVID19 negative. Pt has Medicare Part A only. Pt is currently requiring oxygen at two liters nasal canula. Pt on IV Rocephin and IV Azithromycin. PT/OT ordered. Pt has no home oxygen. SS will continue to follow for discharge planning.
--- NOTE | 2021-10-02 12:27 | PDOC ---
Renal-Progress Notes Subjective Notes Notes NO NEW COMPLAINTS History of Present Illness Hx of present illness STABLE Vitals Vitals Vital Signs Date Time Temp Pulse Resp B/P (MAP) Pulse Ox O2 Delivery O2 Flow Rate FiO2 10/02/21 10:53 98.2 87 18 144/66 (92) 95 Room Air 98.2 10/02/21 07:00 2.0 Weight Weight [ ] I.O. Intake and Output Intake and Output 10/02/21 07:00 Intake Total 488 ml Output Total 1500 ml Balance -1012 ml Intake Oral 238 ml IV Total 250 ml Output Urine Total 1500 ml Labs Labs Laboratory Tests Test 10/02/21 04:10 White Blood Count 6.5 x10^3/uL (4.0-11.0) Red Blood Count 2.39 x10^6/uL (4.30-5.70) Hemoglobin 8.4 g/dL (13.0-17.5) Hematocrit 25.0 % (39.0-53.0) Mean Corpuscular Volume 105 fL (79-100) Mean Corpuscular Hemoglobin 35 pg (25-35) Mean Corpuscular Hemoglobin Concent 34 g/dL (31-37) Red Cell Distribution Width 14.3 % (11.5-14.5) Platelet Count 304 x10^3/uL (140-400) Neutrophils (%) (Auto) 64 % (31-73) Lymphocytes (%) (Auto) 18 % (24-48) Monocytes (%) (Auto) 15 % (0-9) Eosinophils (%) (Auto) 2 % (0-3) Basophils (%) (Auto) 1 % (0-3) Neutrophils # (Auto) 4.2 x10^3/uL (1.8-7.7) Lymphocytes # (Auto) 1.2 x10^3/uL (1.0-4.8) Monocytes # (Auto) 1.0 x10^3/uL (0.0-1.1) Eosinophils # (Auto) 0.1 x10^3/uL (0.0-0.7) Basophils # (Auto) 0.0 x10^3/uL (0.0-0.2) Sodium Level 138 mmol/L (136-145) Potassium Level 4.6 mmol/L (3.5-5.1) Chloride Level 104 mmol/L (98-107) Carbon Dioxide Level 29 mmol/L (21-32) Anion Gap 5 (6-14) Blood Urea Nitrogen 38 mg/dL (8-26) Creatinine 1.8 mg/dL (0.7-1.3) Estimated GFR (Cockcroft-Gault) 36.6 BUN/Creatinine Ratio 21 (6-20) Glucose Level 156 mg/dL (70-99) Calcium Level 8.0 mg/dL (8.5-10.1) Total Bilirubin 0.1 mg/dL (0.2-1.0) Aspartate Amino Transf (AST/SGOT) 31 U/L (15-37) Alanine Aminotransferase (ALT/SGPT) 37 U/L (16-63) Alkaline Phosphatase 129 U/L (46-116) Total Protein 7.7 g/dL (6.4-8.2) Albumin 1.8 g/dL (3.4-5.0) Albumin/Globulin Ratio 0.3 (1.0-1.7) Micro Micro Microbiology 09/30/21 Blood Culture - Preliminary, Resulted NO GROWTH AFTER 1 DAY 09/30/21 Urine Culture - Final, Complete Review of Systems Constitutional: yes: weakness, alert, oriented Ears/Nose/Throat: Yes: no symptom reported Eyes: Yes: no symptom reported Pulmonary: Yes no symptom reported Cardiovascular: Yes no symptom reported Genitourinary: Yes: no symptom reported Musculoskeletal: Yes: muscle stiffness Skin: Yes no symptom reported Psychiatric/Neurological: Yes: no symptom reported Endocrine: Yes: no symptom reported Physical Exam General Appearance: no apparent distress Skin: warm Respiratory: decreased breath sounds Heart: S1S2 Abdomen: soft, bowel sounds present Genitourinary: bladder flat Extremities: pulses present, no edema Neurology: alert Musculoskeletal: Other (prior BKA surgery) Assessment Assessment IMP JOHNATHAN VS CKD STAGE 3B-CR STABLE IN THE 1.8-2.0 RANGE LABILE HTN ACUTE RESP FAILURE PNEUMONIA RECENT UTI BPH PLAN ANTIBIOTICS CONT FLOMAX WILL FOLLOW NATHANIEL LLAMAS MD Oct 02, 2021 12:27
[2021-10-02] MEDS: ENOXAPARIN 40 MG/0.4 ML SYRINGE. SQ SCH (12:31)
[2021-10-02 15:01] VITALS: BP 159/65
[2021-10-02 19:45] VITALS: BP 186/77
[2021-10-02] MEDS: AZITHROMYCIN 500 MG in IV NORMAL SALINE 250ML 250 ML IV SCH (20:30)
[2021-10-02] MEDS: cefTRIAXone IV Push 1 GM VIAL. IVP SCH (20:30)
[2021-10-02] MEDS: TAMSULOSIN 0.4 MG CAP.ER.24H. PO SCH (20:45)
[2021-10-02] MEDS: ATORVASTATIN CALCIUM 20 MG TABLET PO SCH (20:45)
--- NOTE | 2021-10-02 21:00 | NUR ---
HELD HS ONEL PER PT, SAID HE DIDNT WANT TO BOTTOM OUT. LCRN
[2021-10-02 23:15] VITALS: BP 148/66
--- NOTE | 2021-10-03 02:36 | NUR ---
O2 SATS ON RA IS 80%, PLACED PT ON 2 LITERS NASAL CANNULA. SEEMS TO BE IN A DEEP SLEEP. LCRN
[2021-10-03 03:15] VITALS: BP 169/73
[2021-10-03 06:42] LABS: CALCIUM 8.1 mg/dL (8.5-10.1); CREATININE 1.8 mg/dL (0.7-1.3); GFR 36.6; POTASSIUM 4.5 mmol/L (3.5-5.1)
[2021-10-03 07:00] VITALS: BP 148/67
[2021-10-03] MEDS: NON FORMULARY ITEM (Icosapent Ethyl (Vascepa) 2 CAP) PO SCH (07:30)
[2021-10-03] MEDS: INSULIN LISPRO 300 UNITS/3 ML VIAL. SQ SCH (08:00)
[2021-10-03] MEDS: ASPIRIN CHEWABLE 81 MG TABLET. PO SCH (09:01)
[2021-10-03] MEDS: CHLORTHALIDONE 25 MG TABLET. PO SCH (09:01)
[2021-10-03] MEDS: PANTOPRAZOLE 40 MG TABLET.DR. PO SCH (09:01)
[2021-10-03] MEDS: LACTOBACILLUS RHAMNOSUS GG 1 CAPSULE. PO SCH (09:01)
[2021-10-03] MEDS: LOSARTAN POTASSIUM 50 MG TABLET. PO SCH (09:02)
[2021-10-03] MEDS: PHENYTOIN SODIUM EXTENDED 100 MG CAPSULE PO SCH (09:02)
[2021-10-03] MEDS: CARVEDILOL 12.5 MG TABLET. PO SCH (09:03)
[2021-10-03] MEDS ORDERED: AMOX1TAB58 PO (10:52)
--- NOTE | 2021-10-03 10:54 | SNU/HH DC ---
DISCHARGE WITH HOME HEALTH DISCHARGE INFORMATION: Final Diagnosis: Problems Medical Problems: (1) Acute kidney failure Status: Acute (2) Hypoxia Status: Acute (3) Person under investigation for COVID-19 Status: Acute (4) Pneumonia Status: Acute (5) SIRS (systemic inflammatory response syndrome) Status: Acute Condition on Discharge: Stable CODE STATUS: Code Status: Full HOME HEALTH: Face to Face: I certify this patient is under my care and that I, or a nurse practitioner or physician's environmental engineering assistant working with me, had a face to face encounter that meets the physician face to face encounter requirements with this patient on []. Medical Complications: Pneumonia Half-Way For: Assess Cardiopulm Status RN For Eval/Treatment: Yes Physical Therapy For: Evalulation/Treatment Occupational Therapy For: Evaluation/Treatment Home Health Aide For: Self-care WATER PURIFIER For: Community Resources Pt Meets Homebound Status: Unsteady balance w/ amb, POST DISCHARGE ORDERS: DIET AFTER DISCHARGE: Cardiac CERTIFICATION STATEMENT: Certification Statement: Certification Statement: Based on the above finding, I certify that this patient is confined to the home and needs intermittent alf care, physical therapy and/or speech therapy, or continues to need occupational therapy.~ This patient is under my care, and I have initiated the establishment of the plan of care.~ This patient will be followed by myself or a community physician who will periodically review the plan of care. Home Meds Active Scripts Amoxicillin/Potassium Clav (AUGMENTIN 500-125 TABLET) 1 Each Tablet, 1 TAB PO BID for . for 7 Days, #14 TAB 0 Refills Prov:CASTLE,NIAL K III DO 10/03/21 Reported Medications Sildenafil Citrate (SILDENAFIL) 20 Mg Tablet, 20 MG PO PRN 1X for ibtercourse, TAB 10/01/21 Cetirizine Hcl (CETIRIZINE HCL) 10 Mg Tablet, 1 TAB PO PRN DAILY PRN for ALLERGI ES, #30 TAB 5 Refills 10/01/21 Acetaminophen (ACETAMINOPHEN) 500 Mg Tablet, 2 TAB PO PRN BID PRN for pain or fever for 30 Days, #60 TAB 0 Refills 10/01/21 Icosapent Ethyl (VASCEPA) 1 Gm Capsule, 2 CAP PO BID AC for lowers risk of mi for 30 Days, #120 CAP 0 Refills 10/01/21 Insulin Degludec (Tresiba) 100 Unit/1 Ml Vial, 40 UNIT SQ DAILYWLUN for diabetic, EACH 10/01/21 Telmisartan (MICARDIS) 80 Mg Tablet, 1 TAB PO DAILY for high blood pressure, #90 TAB 3 Refills 10/01/21 Tamsulosin Hcl (FLOMAX) 0.4 Mg Cap.er.24h, 1 CAP PO HS for retention, #90 CAP 3 Refills 10/01/21 Pravastatin Sodium (PRAVASTATIN SODIUM) 80 Mg Tablet, 1 TAB PO QHS for lowers cholesterol, #90 TAB 3 Refills 10/01/21 Phenytoin Sodium Extended (PHENYTOIN SODIUM EXTENDED) 300 Mg Capsule, 1 CAP PO BIDWMEALS for antiseizure for 30 Days, #60 CAP 0 Refills 10/01/21 Omeprazole (OMEPRAZOLE) 20 Mg Capsule.dr, 1 CAP PO 0730 for antigerd, #30 CAP 5 Refills 10/01/21 Insulin Lispro (HUMALOG) 100 Unit/1 Ml Vial, 26 UNIT SQ BID WMEALS for diabetic, EACH 10/01/21 Cinnamon Bark (CINNAMON) 500 Mg Capsule, 1000 MG PO BID for supplement, CAP 10/01/21 Chlorthalidone (CHLORTHALIDONE ) 25 Mg Tablet, 25 MG PO DAILY for DIURETIC, TAB 10/01/21 Carvedilol (CARVEDILOL) 25 Mg Tablet, 25 MG PO BIDWMEALS for CARDIAC, TAB 10/01/21 Aspirin (ASPIRIN) 81 Mg Tab.chew, 1 TAB PO DAILY for blood thinner, #30 TAB 3 Refills 10/01/21 ELADIO PATEL III DO Oct 03, 2021 10:54
--- NOTE | 2021-10-03 10:54 | SNU/HH DC ---
DISCHARGE ORDERS DISCHARGE INFORMATION: FINAL DIAGNOSIS Problems Medical Problems: (1) Acute kidney failure Status: Acute (2) Hypoxia Status: Acute (3) Person under investigation for COVID-19 Status: Acute (4) Pneumonia Status: Acute (5) SIRS (systemic inflammatory response syndrome) Status: Acute CONDITION ON DISCHARGE: Stable CODE STATUS: Code Status: Full LONG-TERM: SNF STAY <30 DAYS: No HOSPICE: HOSPICE: No HOSPICE EVAL & TREAT: No LTAC: ADMIT TO LTAC: No POST DISCHARGE ORDERS: DIET AFTER DISCHARGE: Cardiac DISCHARGE MEDICATIONS: Home Meds Active Scripts Amoxicillin/Potassium Clav (AUGMENTIN 500-125 TABLET) 1 Each Tablet, 1 TAB PO BID for . for 7 Days, #14 TAB 0 Refills Prov:CASTLE,NIAL K III DO 10/03/21 Reported Medications Sildenafil Citrate (SILDENAFIL) 20 Mg Tablet, 20 MG PO PRN 1X for ibtercourse, TAB 10/01/21 Cetirizine Hcl (CETIRIZINE HCL) 10 Mg Tablet, 1 TAB PO PRN DAILY PRN for ALLERGIES, #30 TAB 5 Refills 10/01/21 Acetaminophen (ACETAMINOPHEN) 500 Mg Tablet, 2 TAB PO PRN BID PRN for pain or fever for 30 Days, #60 TAB 0 Refills 10/01/21 Icosapent Ethyl (VASCEPA) 1 Gm Capsule, 2 CAP PO BID AC for lowers risk of mi for 30 Days, #120 CAP 0 Refills 10/01/21 Insulin Degludec (Tresiba) 100 Unit/1 Ml Vial, 40 UNIT SQ DAILYWLUN for diabetic, EACH 10/01/21 Telmisartan (MICARDIS) 80 Mg Tablet, 1 TAB PO DAILY for high blood pressure, #90 TAB 3 Refills 10/01/21 Tamsulosin Hcl (FLOMAX) 0.4 Mg Cap.er.24h, 1 CAP PO HS for retention, #90 CAP 3 Refills 10/01/21 Pravastatin Sodium (PRAVASTATIN SODIUM) 80 Mg Tablet, 1 TAB PO QHS for lowers cholesterol, #90 TAB 3 Refills 10/01/21 Phenytoin Sodium Extended (PHENYTOIN SODIUM EXTENDED) 300 Mg Capsule, 1 CAP PO BIDWMEALS for antiseizure for 30 Days, #60 CAP 0 Refills 10/01/21 Omeprazole (OMEPRAZOLE) 20 Mg Capsule.dr, 1 CAP PO 0730 for antigerd, #30 CAP 5 Refills 10/01/21 Insulin Lispro (HUMALOG) 100 Unit/1 Ml Vial, 26 UNIT SQ BID WMEALS for diabetic, EACH 10/01/21 Cinnamon Bark (CINNAMON) 500 Mg Capsule, 1000 MG PO BID for supplement, CAP 10/01/21 Chlorthalidone (CHLORTHALIDONE ) 25 Mg Tablet, 25 MG PO DAILY for DIURETIC, TAB 10/01/21 Carvedilol (CARVEDILOL) 25 Mg Tablet, 25 MG PO BIDWMEALS for CARDIAC, TAB 10/01/21 Aspirin (ASPIRIN) 81 Mg Tab.chew, 1 TAB PO DAILY for blood thinner, #30 TAB 3 Refills 10/01/21 ELADIO PATEL III DO Oct 03, 2021 10:54
--- NOTE | 2021-10-03 10:58 | PDOC ---
PULMONARY PROGRESS NOTES DATE: 10/03/21 TIME: 10:54 Subjective The patient was sitting up in bed on room air this morning, O2 saturation at 94% currently. No overnight events, Feeling slightly better today. . Vitals Vital Signs Date Time Temp Pulse Resp B/P (MAP) Pulse Ox O2 Delivery O2 Flow Rate FiO2 10/03/21 09:03 82 148/67 10/03/21 08:00 Nasal Cannula 2.0 10/03/21 07:00 97.8 19 93 97.8 ROS: No Nausea, No Chest Pain, No Abdominal Pain General: Alert, No acute distress Lungs: Clear, Wheezing Cardiovascular: S1, S2 Abdomen: Soft, Non-tender Neuro Exam: Alert Extremities: No Edema Skin: Warm, No Rashes Labs Laboratory Tests Test 10/02/21 04:10 10/03/21 04:45 White Blood Count 6.5 x10^3/uL (4.0-11.0) Red Blood Count 2.39 x10^6/uL (4.30-5.70) Hemoglobin 8.4 g/dL (13.0-17.5) Hematocrit 25.0 % (39.0-53.0) Mean Corpuscular Volume 105 fL (79-100) Mean Corpuscular Hemoglobin 35 pg (25-35) Mean Corpuscular Hemoglobin Concent 34 g/dL (31-37) Red Cell Distribution Width 14.3 % (11.5-14.5) Platelet Count 304 x10^3/uL (140-400) Neutrophils (%) (Auto) 64 % (31-73) Lymphocytes (%) (Auto) 18 % (24-48) Monocytes (%) (Auto) 15 % (0-9) Eosinophils (%) (Auto) 2 % (0-3) Basophils (%) (Auto) 1 % (0-3) Neutrophils # (Auto) 4.2 x10^3/uL (1.8-7.7) Lymphocytes # (Auto) 1.2 x10^3/uL (1.0-4.8) Monocytes # (Auto) 1.0 x10^3/uL (0.0-1.1) Eosinophils # (Auto) 0.1 x10^3/uL (0.0-0.7) Basophils # (Auto) 0.0 x10^3/uL (0.0-0.2) Sodium Level 138 mmol/L (136-145) 136 mmol/L (136-145) Potassium Level 4.6 mmol/L (3.5-5.1) 4.5 mmol/L (3.5-5.1) Chloride Level 104 mmol/L (98-107) 103 mmol/L (98-107) Carbon Dioxide Level 29 mmol/L (21-32) 27 mmol/L (21-32) Anion Gap 5 (6-14) 6 (6-14) Blood Urea Nitrogen 38 mg/dL (8-26) 38 mg/dL (8-26) Creatinine 1.8 mg/dL (0.7-1.3) 1.8 mg/dL (0.7-1.3) Estimated GFR (Cockcroft-Gault) 36.6 36.6 BUN/Creatinine Ratio 21 (6-20) Glucose Level 156 mg/dL (70-99) 152 mg/dL (70-99) Calcium Level 8.0 mg/dL (8.5-10.1) 8.1 mg/dL (8.5-10.1) Total Bilirubin 0.1 mg/dL (0.2-1.0) Aspartate Amino Transf (AST/SGOT) 31 U/L (15-37) Alanine Aminotransferase (ALT/SGPT) 37 U/L (16-63) Alkaline Phosphatase 129 U/L (46-116) Total Protein 7.7 g/dL (6.4-8.2) Albumin 1.8 g/dL (3.4-5.0) Albumin/Globulin Ratio 0.3 (1.0-1.7) Laboratory Tests Test 10/03/21 04:45 Sodium Level 136 mmol/L (136-145) Potassium Level 4.5 mmol/L (3.5-5.1) Chloride Level 103 mmol/L (98-107) Carbon Dioxide Level 27 mmol/L (21-32) Anion Gap 6 (6-14) Blood Urea Nitrogen 38 mg/dL (8-26) Creatinine 1.8 mg/dL (0.7-1.3) Estimated GFR (Cockcroft-Gault) 36.6 Glucose Level 152 mg/dL (70-99) Calcium Level 8.1 mg/dL (8.5-10.1) Medications Active Scripts Medications Dose Route/Sig Max Daily Dose Days Date Category Sildenafil (Sildenafil Citrate) 20 Mg Tablet 20 Mg PO PRN 1X 10/01/21 Reported Cetirizine Hcl 10 Mg Tablet 1 Tab PO PRN DAILY PRN 10/01/21 Reported Acetaminophen 500 Mg Tablet 2 Tab PO PRN BID PRN 30 10/01/21 Reported Vascepa (Icosapent Ethyl) 1 Gm Capsule 2 Cap PO BID AC 30 10/01/21 Reported Tresiba (Insulin Degludec) 100 Unit/1 Ml Vial 40 Unit SQ DAILYWLUN 10/01/21 Reported Micardis (Telmisartan) 80 Mg Tablet 1 Tab PO DAILY 10/01/21 Reported Flomax (Tamsulosin Hcl) 0.4 Mg Cap.er.24h 1 Cap PO HS 10/01/21 Reported Pravastatin Sodium 80 Mg Tablet 1 Tab PO QHS 10/01/21 Reported Phenytoin Sodium Extended 300 Mg Capsule 1 Cap PO BIDWMEALS 30 10/01/21 Reported Omeprazole 20 Mg Capsule.dr 1 Cap PO 0730 10/01/21 Reported Humalog (Insulin Lispro) 100 Unit/1 Ml Vial 26 Unit SQ BID WMEALS 10/01/21 Reported Cinnamon (Cinnamon Bark) 500 Mg Capsule 1,000 Mg PO BID 10/01/21 Reported Chlorthalidone (Chlorthalidone) 25 Mg Tablet 25 Mg PO DAILY 10/01/21 Reported Carvedilol 25 Mg Tablet 25 Mg PO BIDWMEALS 10/01/21 Reported Aspirin 81 Mg Tab.chew 1 Tab PO DAILY 10/01/21 Reported Impression . 1. Acute respiratory failure secondary to pneumonia, rule out congestive heart failure. 2. Abnormal CT of the chest. 3. Obesity, suspect obstructive sleep apnea-hypopnea syndrome. 4. Hypertension. 5. Gastroesophageal reflux disease. 6. Status post left below-knee amputation. 7. Leukocytosis. 8. Acute kidney injury. Plan . Updated 10/03 Continue oxygen supplementation to maintain O2 of 92% Continue Antibiotics Lovenox for DVT prophylaxis Bronchodilator - scheduled Follow wound care recommendations Possible discharge to SNF today Updated 10/02 Patient wishes to follow-up with a PCP from [facility] Continue to titrate FiO2 down; currently on 2L NC O2 95% Continue Antibiotics Lovenox for prophylaxis Recommend wound care for right toe wound assessment; discussed with nurse COVID-19 PCR Negative Bronchodilator?? Labs Reviewed Microbiology Reviewed; No growth blood or urine after [address] Chest/Abd/Pelvis IMPRESSION: 1. Patchy groundglass opacity in lungs bilaterally favored to be infectious or inflammatory in etiology. 2. No acute process identified within the abdomen or pelvis. PLAN AND RECOMMENDATIONS: 1. Titrate FiO2 to keep O2 saturation 90%. 2. Continue Rocephin and azithromycin. 3. Lovenox for DVT prophylaxis. 4. Pepcid for stress ulcer prophylaxis. 5. I do recommend echocardiogram. 6. Follow up COVID PCR testing. 7. If his COVID PCR testing negative, start bronchodilator. 8. I do recommend a sleep study as an outpatient. 9. He would require better blood pressure control. 10. The findings and recommendations were discussed with RN. TIFFANIE MULLINS MD Oct 03, 2021 10:58
[2021-10-03 11:00] VITALS: BP 132/85
--- NOTE | 2021-10-03 11:51 | NUR ---
SS following up with discharge planning. SS reviewed pt chart and discussed with pt RN. Pt is from [facility], ; fax [phone]. COVID19 negative. Pt is currently on room air. Discharge order on the chart for home with home healthcare. SS met with pt and discussed discharge planning and home healthcare services. Pt agreeable to home healthcare with no preference of company. Discharge orders and referral sent to [facility], ; fax [phone]. Pt accepted on services with [facility]. Pt requesting transportation back to facility. Pt will discharge today and return to facility between 1330 and 1400 via [facility], . Pt and pt's RN notified. Discharge orders and clinical phoned and faxed to [facility].
--- NOTE | 2021-10-03 11:55 | PDOC ---
Renal-Progress Notes Subjective Notes Notes NO NEW COMPLAINTS History of Present Illness Hx of present illness STABLE Vitals Vitals Vital Signs Date Time Temp Pulse Resp B/P (MAP) Pulse Ox O2 Delivery O2 Flow Rate FiO2 10/03/21 09:03 82 148/67 10/03/21 08:00 Nasal Cannula 2.0 10/03/21 07:00 97.8 19 93 97.8 Weight Weight [ ] I.O. Intake and Output Intake and Output 10/03/21 07:00 Intake Total 680 ml Output Total 450 ml Balance 230 ml Intake Oral 680 ml Output Urine Total 450 ml Labs Labs Laboratory Tests Test 10/03/21 04:45 Sodium Level 136 mmol/L (136-145) Potassium Level 4.5 mmol/L (3.5-5.1) Chloride Level 103 mmol/L (98-107) Carbon Dioxide Level 27 mmol/L (21-32) Anion Gap 6 (6-14) Blood Urea Nitrogen 38 mg/dL (8-26) Creatinine 1.8 mg/dL (0.7-1.3) Estimated GFR (Cockcroft-Gault) 36.6 Glucose Level 152 mg/dL (70-99) Calcium Level 8.1 mg/dL (8.5-10.1) Micro Micro Microbiology 09/30/21 Blood Culture - Preliminary, Resulted NO GROWTH AFTER 2 DAYS 09/30/21 Urine Culture - Final, Complete Review of Systems Constitutional: yes: weakness, alert, oriented Ears/Nose/Throat: Yes: no symptom reported Eyes: Yes: no symptom reported Pulmonary: Yes no symptom reported Cardiovascular: Yes no symptom reported Genitourinary: Yes: no symptom reported Musculoskeletal: Yes: muscle stiffness Skin: Yes no symptom reported Psychiatric/Neurological: Yes: no symptom reported Endocrine: Yes: no symptom reported Physical Exam General Appearance: no apparent distress Skin: warm Respiratory: decreased breath sounds Heart: S1S2 Abdomen: soft, bowel sounds present Genitourinary: bladder flat Extremities: pulses present, no edema Neurology: alert Musculoskeletal: Other (prior BKA surgery) Assessment Assessment IMP JOHNATHAN VS CKD STAGE 3B-CR STABLE IN THE 1.8-2.0 RANGE LABILE HTN-IMPROVED ACUTE RESP FAILURE PNEUMONIA RECENT UTI BPH PLAN ANTIBIOTICS CONT FLOMAX WILL FOLLOW NATHANIEL LLAMAS MD Oct 03, 2021 11:55
[2021-10-03] MEDS: INSULIN GLARGINE SYRINGE. SQ SCH ×2 (12:00→12:26)
--- NOTE | 2021-10-03 12:50 | DS ---
DATE OF DISCHARGE: 10/03/2021 ADMITTING DIAGNOSIS: Pneumonia. DISCHARGE DIAGNOSES: Resolving pneumonia, history of obesity, hypertension, gastroesophageal reflux disease, left below-knee amputation, leukocytosis, acute kidney injury. HOSPITAL COURSE: The patient is a pleasant middle-aged male who presented with pneumonia. He was admitted. We gave him breathing treatments, oxygen. We consulted Nephrology and Pulmonary Medicine. Today, I saw and examined him. He is doing well and wants to go home. We plan to discharge. DISPOSITION: Home with home health. ACTIVITY: As tolerated. DIET: Low sodium. DISCHARGE MEDICATIONS: Please see the MRAD. Augmentin 500 b.i.d., p.r.n. Tylenol, aspirin 81 a day, carvedilol 25 b.i.d., cetirizine 10 a day, cinnamon bark, Vascepa 2 capsules b.i.d., Tresiba 40 a day, Humalog insulin 26 units with meals b.i.d., omeprazole 20 a day, phenytoin 300 b.i.d., pravastatin 80 a day, sildenafil 20 a day, Flomax 0.4 a day, and Micardis 80 a day. TOTAL TIME: 34 minutes. AGUSTÍN/JENNIFER DR: Ronald TID: [id number]
[2021-10-03] MEDS: ENOXAPARIN 40 MG/0.4 ML SYRINGE. SQ SCH (13:00)
--- NOTE | 2021-10-03 13:36 | NUR ---
Pt refusing ABG draw for home oxygen needs. Stating no more blood draws. Home health set up for DC. Pt will need outpatient sleep study.
== END 2021-10-03 13:45 | disposition home health service (06) | DRG 177 ==
LOC: ER 18:45 → 6 SOUTH 22:10
PROVIDERS: ADMIT Internal Medicine; ATTEND Internal Medicine
DX: J15.6 Pneumonia due to other Gram-negative bacteria (principal); J96.01 Acute respiratory failure with hypoxia; N17.0 Acute kidney failure with tubular necrosis; R65.10 Systemic inflammatory response syndrome (SIRS) of non-infectious origin without acute organ dysfunction; E11.22 Type 2 diabetes mellitus with diabetic chronic kidney disease; E66.9 Obesity, unspecified; E78.00 Pure hypercholesterolemia, unspecified; E78.5 Hyperlipidemia, unspecified; F03.90 Unspecified dementia, unspecified severity, without behavioral disturbance, psychotic disturbance, mood disturbance, and anxiety; I12.9 Hypertensive chronic kidney disease with stage 1 through stage 4 chronic kidney disease, or unspecified chronic kidney disease; K21.9 Gastro-esophageal reflux disease without esophagitis; D72.829 Elevated white blood cell count, unspecified; N18.30 Chronic kidney disease, stage 3 unspecified; N40.0 Benign prostatic hyperplasia without lower urinary tract symptoms; Z20.822 Contact with and (suspected) exposure to COVID-19; Z68.38 Body mass index [BMI] 38.0-38.9, adult; Z82.49 Family history of ischemic heart disease and other diseases of the circulatory system; Z89.512 Acquired absence of left leg below knee
CPT/HCPCS: 36415; 36600; 71045; 71250; 74176; 80048; 80053; 80307; 81001; 82805; 82962; 83605; 83690; 83880; 84484; 85007; 85025; 87040; 87086; 87428; 93005; 96361; 96365; 96375; J0456; J0696; J1650; J1815; J3010; J3490; J7030; J7040; J7050; J7060; U0003; 97530-GP; 97535-GO; 99285-25; G0378